=== PATIENT | male | born 1980 | race Caucasian/White ===

== ENCOUNTER 2017-03-19 13:10 | Emergency (ER) | payer BC ==
[~2017-03-19] VITALS: Ht 167.6 cm; Wt 113.0 kg
[~2017-03-19 13:10] MED LIST: ATV/1 PO; ONDA8TAB12 PO; PRED20TA PO
[2017-03-19 13:11] VITALS: TEMP 37.1; Ht 167.6 cm; Wt 113.0 kg
[2017-03-19] MEDS ORDERED: BETAPOW PO (13:27)
[2017-03-19 13:34] VITALS: O2SAT 96
[2017-03-19] MEDS ORDERED: ONDANSETRON INJ 2 MG/ML 2 ML VIAL IV STA (14:05)
[2017-03-19] MEDS ORDERED: MECLIZINE HCL 25 MG TAB PO STA (14:05)
[2017-03-19] MEDS ORDERED: SODIUM CHLORIDE 0.9% 1000ML 1,000 ML IV STA (14:05)
[2017-03-19 14:58] LABS: URINE APPEARANCE CLEAR (CLEAR); URINE BILIRUBIN NEG (NEG); URINE COLOR YELLOW; URINE EPITHELIAL CELL AUTO 0-5 /lpf (0-5); URINE NITRITE NEG (NEG); URINE SPECIFIC GRAVITY 1.022 (1.000-1.030); UROBILINOGEN NEG (NEG)
[2017-03-19 15:00] LABS: MANUAL MICROSCOPIC REQUIRED? NO; REVIEW REQ? NO
[2017-03-19 15:14] LABS: BASO % 0.4 %; BASO ABS # 0.03 K/uL (0-0.2); COMPLETE YES; EOS % 1.9 %; HEMATOCRIT 44.1 % (42-52); IG% 0.3 %; LYMPH % 25.3 %; LYMPH ABS # 1.76 K/uL (1.2-3.4); MEAN CELL VOLUME 85.1 fL (80-100); MEAN CORPUSCULAR HEMOGLOBIN 29.2 pg (25-34); MEAN CORPUSCULAR HGB CONC 34.2 g/dl (32-36); MEAN PLATELET VOLUME 10.7 fL (7.4-10.4); MONO % 6.7 %; NEUT % 65.4 %; PLATELET COUNT 204 K/uL (130-400); RED BLOOD COUNT 5.18 M/uL (4.7-6.1); WHITE BLOOD COUNT 6.97 K/uL (4.8-10.8)
[2017-03-19 15:15] LABS: BENZODIAZEPINE, URINE NEG (NEG); COCAINE,URINE NEG (NEG); PHENCYCLIDINE, URINE NEG (NEG)
[2017-03-19 15:38] LABS: ALT/SGPT 29 U/L (12-78); AST/SGOT 7 U/L (15-37); BLOOD UREA NITROGEN 16 mg/dl (7-18); BUN/CREATININE RATIO 18.7 (10-20); CARBON DIOXIDE 28 mmol/L (21-32); CHLORIDE 109 mmol/L (98-107); CREATININE 0.87 mg/dl (0.60-1.40); GLUCOSE 99 mg/dl (70-99); SODIUM 143 mmol/L (136-145)
[2017-03-19 15:49] LABS: ALB/GLOB RATIO 1.2 (0.9-2); ALKALINE PHOSPHATASE 51 U/L (45-117); THYROID STIMULATING HORMONE 0.517 uIu/ml (0.300-4.500)
[2017-03-19 15:53] LABS: ACETAMINOPHEN < 2 ug/ml (10-30)
--- NOTE | 2017-03-19 17:13 | EMERGENCY ROOM VISIT NOTE ---
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 Patient reports that he has been under increased stress over the last week due to the of a friend from overdose. The friend's sister also apparently tried to harm herself. He has been trying to be supportive for her, and has had difficulty dealing with the sudden of his friend. He also reports that he is having difficulty coping with his chronic medical condition. He has good and bad days with regards to his dizziness and vertigo. He is followed by neurologist from [place], and reports that he has been appointment in April. He has symptoms on a daily basis, some days are better than others. Today, he feels like they are worsened by his stress and anxiety. He presently describes his symptoms as feeling like he is "on a Tilt a Whirl" with associated nausea. He has not taken any medication for his symptoms today. He reports "I feel like I' m going insane." He was apparently at work, where he states he had a "breakdown." His coworker wanted to take him home, but the patient did not feel like he could go home, and tried to go to his [employer] to speak to his auto parts handler. When the auto parts handler was not available, the coworker suggested coming to the emergency department. The patient states "I just want someone to talk to." The patient has a remote history of depression when he was roughly 16 after the sudden passing of his father. He did see a therapist and was on antidepressants for some time. He does endorse symptoms consistent with anxiety , but is not presently on any medications for this. He has a lot of issues coping with his chronic medical condition. He denies feeling suicidal or homicidal at this time. Review of Systems Review of systems as per HPI. All other systems reviewed were negative. 10 systems reviewed. Past Medical/Surgical History Medical Problems: (1) Anxiety (2) Depressive Disorder Nec (3) Fall (4) Meniere disease (5) Neurofibromatosis,Type 1 Von Recklinghausen's (6) Tinnitus Nos (7) Tinnitus Nos (8) Tinnitus Nos (9) Unspecified tinnitus (10) Vertigo (11) Vertigo (12) Vertigo Electronic medical records are reviewed and summarized as above/below. See Problem List. Social History Smoking Status: Current Every Day Smoker Alcohol Use: none Drug Use: none Marital Status: single Housing Status: lives with family Occupation Status: employed Current/Historical Medications Scheduled Betahistine Hydrochloride (Bul (Betahistine Dihydrochlori), Unknown Dose PO DIRECTED Allergies Coded Allergies: Dimenhydrinate (Verified Allergy, Severe, VESTIBULAR SX, 03/31/16) INSTRUCTED NEVER TO TAKE Nabumetone (Verified Allergy, Unknown, RASH, 03/31/16) Physical Exam Vital Signs Date Time Temp Pulse Resp B/P (MAP) Pulse Ox O2 Delivery O2 Flow Rate FiO2 03/19/17 17:15 72 16 145/72 98 Room Air 03/19/17 15:17 76 153/89 98 Room Air 81 142/88 85 155/94 03/19/17 15:17 76 16 153/89 98 Room Air 03/19/17 13:38 92 03/19/17 13:34 96 Room Air 03/19/17 13:11 37.1 93 16 153/85 96 Room Air Physical Exam CONSTITUTIONAL: Patient is a well-appearing 36-year-old white male who is awake and alert and in no acute distress. His vital signs are stable. HEENT: Normocephalic, atraumatic. Pupils equal, round, reactive to light and accommodation. EOMs intact without nystagmus. Sclera are anicteric. Tympanic membranes intact, with normal landmarks. External canals are clear. No hemotympanum or Delatorre sign. Oral and nasopharynx are clear. No CSF rhinorrhea. Mucous membranes are moist. NECK: Supple, nontender, no lymphadenopathy. Full range of motion. HEART: Regular rate and rhythm, with normal S1 and S2, no murmur or gallop or rub is heard. LUNGS: Breath sounds equal and clear to auscultation without wheezes, rales, or rhonchi heard. ABDOMEN: Bowel sounds are present. Abdomen is soft, nontender and nondistended. SKIN: No lesions or rash, normal skin turgor. EXTREMITIES: No cyanosis, edema, joint tenderness or swelling. No deformity. NEUROLOGICAL: Alert and oriented x4. Cranial nerves 2 through 12, sensation and strength grossly intact. Gait is normal. Finger to nose is intact. Immediate, recent and remote memories are intact. Concentration is normal. PSYCHIATRIC: Patient is alert and oriented. Flat affect, voice is muted and mumbles at times. Eye contact is appropriate. Answers questions appropriately. No homicidal or suicidal thoughts or ideation. Medical Decision & Procedures Laboratory Results 03/19/17 15:00 Red Blood Count 5.18, Mean Corpuscular Volume 85.1, Mean Corpuscular Hemoglobin 29.2, Mean Corpuscular Hemoglobin Concent 34.2, Mean Platelet Volume 10.7, Neutrophils (%) (Auto) 65.4, Lymphocytes (%) (Auto) 25.3, Monocytes (%) (Auto) 6.7, Eosinophils (%) (Auto) 1.9, Basophils (%) (Auto) 0.4, Neutrophils # (Auto) 4.56, Lymphocytes # (Auto) 1.76, Monocytes # (Auto) 0.47, Eosinophils # (Auto) 0.13, Basophils # (Auto) 0.03 03/19/17 15:00 Test 03/19/17 14:30 03/19/17 15:00 03/19/17 15:20 Urine Color YELLOW Urine Appearance CLEAR (CLEAR) Urine pH 7.0 (4.5-7.5) Urine Specific Sumpter 1.022 (1.000-1.030) Urine Protein 1+ (NEG) Urine Glucose (UA) NEG (NEG) Urine Ketones TRACE (NEG) Urine Occult Blood TRACE (NEG) Urine Nitrite NEG (NEG) Urine Bilirubin NEG (NEG) Urine Urobilinogen NEG (NEG) Urine Leukocyte Esterase NEG (NEG) Urine WBC (Auto) 0 /hpf (0-5) Urine RBC (Auto) 5-10 /hpf (0-4) Urine Hyaline Casts (Auto) 1-5 /lpf (0-5) Urine Epithelial Cells (Auto) 0-5 /lpf (0-5) Urine Bacteria (Auto) NEG (NEG) Urine Opiates Screen NEG (NEG) Urine Methadone, Qualitative NEG (NEG) Urine Barbiturates NEG (NEG) Urine Phencyclidine (PCP) Level NEG (NEG) Ur Amphetamine/Methamphetamine NEG (NEG) MDMA (Ecstasy) Screen NEG (NEG) Urine Benzodiazepines Screen NEG (NEG) Urine Cocaine Metabolite NEG (NEG) Urine Marijuana (THC) POS (NEG) White Blood Count 6.97 K/uL (4.8-10.8) Red Blood Count 5.18 M/uL (4.7-6.1) Hemoglobin 15.1 g/dL (14.0-18.0) Hematocrit 44.1 % (42-52) Mean Corpuscular Volume 85.1 fL (80-100) Mean Corpuscular Hemoglobin 29.2 pg (25-34) Mean Corpuscular Hemoglobin Concent 34.2 g/dl (32-36) Platelet Count 204 K/uL (130-400) Mean Platelet Volume 10.7 fL (7.4-10.4) Neutrophils (%) (Auto) 65.4 % Lymphocytes (%) (Auto) 25.3 % Monocytes (%) (Auto) 6.7 % Eosinophils (%) (Auto) 1.9 % Basophils (%) (Auto) 0.4 % Neutrophils # (Auto) 4.56 K/uL (1.4-6.5) Lymphocytes # (Auto) 1.76 K/uL (1.2-3.4) Monocytes # (Auto) 0.47 K/uL (0.11-0.59) Eosinophils # (Auto) 0.13 K/uL (0-0.5) Basophils # (Auto) 0.03 K/uL (0-0.2) RDW Standard Deviation 39.5 fL (36.4-46.3) RDW Coefficient of Variation 12.7 % (11.5-14.5) Immature Granulocyte % (Auto) 0.3 % Immature Granulocyte # (Auto) 0.02 K/uL (0.00-0.02) Anion Gap 6.0 mmol/L (3-11) Est Creatinine Clear Calc Drug Dose 141.2 ml/min Estimated GFR () 130.5 Estimated GFR (Non- 112.6 BUN/Creatinine Ratio 18.7 (10-20) Calcium Level 9.0 mg/dl (8.5-10.1) Total Bilirubin 0.3 mg/dl (0.2-1) Aspartate Amino Transf (AST/SGOT) 7 U/L (15-37) Alanine Aminotransferase (ALT/SGPT) 29 U/L (12-78) Alkaline Phosphatase 51 U/L (45-117) Troponin I < 0.015 ng/ml (0-0.045) Total Protein 7.1 gm/dl (6.4-8.2) Albumin 3.8 gm/dl (3.4-5.0) Globulin 3.3 gm/dl (2.5-4.0) Albumin/Globulin Ratio 1.2 (0.9-2) Thyroid Stimulating Hormone (TSH) 0.517 uIu/ml (0.300-4.500) Salicylates Level 3.8 mg/dl (2.8-20) Acetaminophen Level < 2 ug/ml (10-30) Ethyl Alcohol mg/dL < 3.0 mg/dl (0-3) Medications Administered Medications (Trade) Dose Ordered Sig/Sudha Route Start Time Stop Time Status Last Admin Dose Admin Sodium Chloride 1,000 ml @ 999 mls/hr Q1H1M STAT IV 03/19/17 14:05 03/19/17 15:05 DC 03/19/17 14:05 999 MLS/HR Ondansetron HCl (Zofran Inj) 4 mg NOW STAT IV 03/19/17 14:05 03/19/17 14:07 DC 03/19/17 14:05 4 MG Meclizine HCl (Antivert Tab) 25 mg NOW STAT PO 03/19/17 14:05 03/19/17 14:07 DC 03/19/17 14:42 25 MG ECG Indication: other (dizziness) Rate (beats per minute): 85 Rhythm: normal sinus Findings: no acute ischemic change, no ectopy Change: no significant change ED Course The patient was seen and assessed as above. His old records are reviewed. He presents the emergency department for evaluation of dizziness, but upon further questioning, the patient has been under increased stress and anxiety due to both his chronic medical condition, as well as unexpected passing of a friend, and in talking this over with the patient, he would like to speak with someone from mental health. The dizziness was a secondary concern for him, as he states that this is typical of his chronic condition, and is no worse than his baseline. He feels that the dizziness has been exacerbated by his stress and anxiety however. EKG was performed and was as noted above. IV lock was initiated and the patient was placed on a serials librarian. He was hydrated with normal saline solution, and was medicated with Zofran 4 mg IV and meclizine 25 mg orally. He reported feeling symptomatically dizzy while laying in the bed, no worse than his normal, and his neurologic exam is completely benign. Laboratory studies were collected primarily for psychiatric clearance, but also to assess or his dizziness. The patient's emergency department workup was largely unrevealing. White count is not elevated. He is not anemic. There are no electrolyte or renal function abnormalities noted. Liver functions are normal. Cardiac enzymes and thyroid function studies are within normal limits. Urinalysis noted trace ketones and trace blood. Urine toxicology screen was positive for marijuana, which the patient did not admit to. Alcohol, salicylates and acetaminophen levels were undetectable. Patient was discussed and evaluated by Miguel Angel Hyaden, ED Psychiatric Sandblast Or Shot[employer] Equipment Tender. Please refer to his assessment for further information. Patient was reviewed with Miguel Angel after his assessment, and it was not felt that he was a threat to himself or others, and did not feel that inpatient psychiatric care was warranted, however referral to outpatient services was provided and the patient was in agreement. The patient was encouraged to seek further psychiatric care as an outpatient, and was educated on the worrisome signs or symptoms for which he should return to the emergency department. With regards to his dizziness, he was advised to keep the appointment he has scheduled with his neurologist for April. Certainly he can reach out to their office sooner if he is having changes in his current condition. He expressed understanding of this and was agreeable. He was discharged home with his mother driving. Differential diagnoses entertained included BPV, dehydration, anemia, mass or malignancy, infection, electrolyte or metabolic abnormality, cardiac arrhythmia , toxicologic, cardiac or neurologic etiology, depression, anxiety, substance abuse, among others. Blood pressure screening: Patient was found to have a slightly elevated blood pressure due to circumstances. I do not believe that the patient requires hypertension monitoring. Medication reconciliation: I attest that I have personally reviewed the patient' s current medication list. Medical Decision See Emergency Department course Impression Primary Impression: Anxiety Additional Impression: Dizziness Departure Information Referrals Atul Guardado III, M.D. (PCP) Patient Instructions My [facility] Additional Instructions DO NOT drive, drink alcohol, operate machinery, or perform dangerous activities today. You were given medications in the ER that can affect your ability to safely function or operate a vehicle. Continue your current medications. Return to the ER for severe anxiety or depression, thoughts of hurting yourself or others, inability to function, hallucinations, worsening of your condition, or as needed. Follow up with outpatient services as discussed. Follow up with your primary care physician this week for a recheck of your current condition and continued care. Follow-up with your specialist in [place] as you have scheduled. Problem Qualifiers
[2017-03-19 17:15] VITALS: BP 145/72; PULSE 72; O2SAT 98
[2017-03-20] MEDS ORDERED: ATV/1 PO (18:35)
== END 2017-03-19 18:03 | disposition home or self-care (01) ==
LOC: C.EDB 13:11
DX: F41.9 Anxiety disorder, unspecified (principal); R42 Dizziness and giddiness; F32.9 Major depressive disorder, single episode, unspecified; H81.09 Meniere's disease, unspecified ear; F17.200 Nicotine dependence, unspecified, uncomplicated

== ENCOUNTER 2017-03-20 14:12 | Emergency (ER) | payer BC ==
[~2017-03-20] VITALS: Ht 167.6 cm; Wt 120.0 kg
[~2017-03-20 14:12] MED LIST changes: -ATV/1 PO; +BETAPOW PO; -ONDA8TAB12 PO; -PRED20TA PO
[2017-03-20 14:17] VITALS: TEMP 36.8; Ht 167.6 cm; Wt 120.0 kg
[2017-03-20] MEDS ORDERED: SODIUM CHLORIDE 0.9% 1000ML 1,000 ML IV STA (14:58)
[2017-03-20 15:03] VITALS: O2SAT 97
[2017-03-20] MEDS ORDERED: DIAZEPAM INJ 5 MG/ML 2 ML CARP IV STA (15:10)
[2017-03-20] MEDS ORDERED: ONDANSETRON 8 MG/54 ML D5W IV STA (15:10)
[2017-03-20 15:49] LABS: BASO % 0.2 %; BASO ABS # 0.02 K/uL (0-0.2); COMPLETE YES; EOS % 1.3 %; HEMATOCRIT 44.9 % (42-52); IG% 0.4 %; LYMPH % 26.2 %; LYMPH ABS # 2.17 K/uL (1.2-3.4); MEAN CELL VOLUME 84.7 fL (80-100); MEAN CORPUSCULAR HEMOGLOBIN 28.9 pg (25-34); MEAN CORPUSCULAR HGB CONC 34.1 g/dl (32-36); MEAN PLATELET VOLUME 10.5 fL (7.4-10.4); NEUT % 63.9 %; PLATELET COUNT 225 K/uL (130-400); WHITE BLOOD COUNT 8.29 K/uL (4.8-10.8)
[2017-03-20 16:05] LABS: PARTIAL THROMBOPLASTIN RATIO 1.1; PROTHROMBIN TIME (PATIENT) 10.6 SECONDS (9.0-12.0)
[2017-03-20 16:07] LABS: ALT/SGPT 29 U/L (12-78); AST/SGOT 10 U/L (15-37); BLOOD UREA NITROGEN 14 mg/dl (7-18); BUN/CREATININE RATIO 17.5 (10-20); CALCIUM 9.2 mg/dl (8.5-10.1); CARBON DIOXIDE 27 mmol/L (21-32); CHLORIDE 109 mmol/L (98-107); CREATININE 0.82 mg/dl (0.60-1.40); GLUCOSE 90 mg/dl (70-99); MAGNESIUM 2.4 mg/dl (1.8-2.4); POTASSIUM 4.1 mmol/L (3.5-5.1); SODIUM 141 mmol/L (136-145)
[2017-03-20 16:16] LABS: ALKALINE PHOSPHATASE 51 U/L (45-117); CKMB/CK RATIO 1.3 (0-3.0); THYROID STIMULATING HORMONE 0.473 uIu/ml (0.300-4.500)
[2017-03-20 17:32] LABS: URINE APPEARANCE CLEAR (CLEAR); URINE BILIRUBIN NEG (NEG); URINE COLOR YELLOW; URINE EPITHELIAL CELL AUTO 0-5 /lpf (0-5); URINE NITRITE NEG (NEG); URINE PH 7.5 (4.5-7.5); URINE SPECIFIC GRAVITY 1.011 (1.000-1.030); UROBILINOGEN NEG (NEG)
[2017-03-20 17:35] LABS: MANUAL MICROSCOPIC REQUIRED? NO; REVIEW REQ? NO
[2017-03-20] MEDS ORDERED: ATV/1 PO (18:35)
[2017-03-20 18:37] VITALS: BP 127/79; PULSE 72; O2SAT 98
[2017-03-20] MEDS ORDERED: ATIVAN 1MG HOMEPACK PO ONE (18:45)
--- NOTE | 2017-03-20 21:03 | EMERGENCY ROOM VISIT NOTE ---
History Report prepared by Valeri: Teddy Díaz Under the Supervision of: Dr. Atul Cortes M.D. First contact with patient: 14:50 Chief Complaint: DIZZY Stated Complaint: SEEN AT [facility] T-1, DIZZY, ROOM SPINNING Nursing Triage Summary: triage note: pt to triage via wheelchair. "i am just really dizzy and i have been falling." History of Present Illness The patient is a 36 year old male who presents to the Emergency Room with complaints of dizziness that occurred today, a couple of hours ago. He was seen in the ER yesterday for the same symptoms. However today, his symptoms have worsened again. Today, his dizziness has actually made him fall as well. He did not injure anything, however. He is experiencing nausea currently. He suffers from chronic vertigo and balance problems. He has received surgeries to try to resolve these, but they only offered some relief. Moving his eyes side to side make his symptoms worse. He currently has Meclizine and an antihistamine at home , but states they did not help. Pt denies LOC, headache, fevers, chills, diaphoresis, visual changes, neck pain, chest pain, breathing difficulties, vomiting, abdominal pain, back pain, melena, hematochezia, urinary symptoms, numbness, weakness, lymphadenopathy, rash, or other complaints. He also notes that he has been recently stressed out because his friend . Source of History: patient Onset: today Position: other (global) Symptom Intensity: moderate Quality: other (Dizziness) Timing: constant Modifying Factors (Worsening): movement (Eyes) Associated Symptoms: + nausea Review of Systems See HPI for pertinent positives and negatives. A total of ten systems were reviewed and were otherwise negative. Past Medical & Surgical Medical Problems: (1) Anxiety (2) Depressive Disorder Nec (3) Fall (4) Meniere disease (5) Neurofibromatosis,Type 1 Von Recklinghausen's (6) Tinnitus Nos (7) Tinnitus Nos (8) Tinnitus Nos (9) Unspecified tinnitus (10) Vertigo (11) Vertigo (12) Vertigo Family History Patient reports no known family medical history. Social History Smoking Status: Current Every Day Smoker Alcohol Use: none Drug Use: none Marital Status: single Housing Status: lives with family Occupation Status: employed Current/Historical Medications Scheduled Betahistine Hydrochloride (Bul (Betahistine Dihydrochlori), Unknown Dose PO DIRECTED Scheduled PRN Lorazepam (Ativan), 1 MG PO Q6H PRN for Dizziness or Vertigo Allergies Coded Allergies: Dimenhydrinate (Verified Allergy, Severe, VESTIBULAR SX, 03/20/17) INSTRUCTED NEVER TO TAKE Nabumetone (Verified Allergy, Unknown, RASH, 03/20/17) Physical Exam Vital Signs Date Time Temp Pulse Resp B/P (MAP) Pulse Ox O2 Delivery O2 Flow Rate FiO2 03/20/17 18:37 72 18 127/79 98 Room Air 03/20/17 17:14 78 18 159/90 98 Room Air 03/20/17 15:56 71 18 129/88 99 Room Air 03/20/17 15:06 78 03/20/17 15:03 97 Room Air 03/20/17 14:58 83 150/79 93 135/74 81 124/76 03/20/17 14:17 36.8 85 18 138/81 96 Room Air Physical Exam GENERAL: Awake, alert, well appearing, no distress HENT: Normocephalic, atraumatic. TM's normal. Oropharynx unremarkable. EYES: PERRL. EOMI. Lateral nystagmus, no pathological nystagmus. Normal conjunctiva. Sclera non-icteric. NECK: Supple. No nuchal rigidity. FROM. No JVD or bruit. RESPIRATORY: CTA CARDIAC: RRR. No murmur. ABDOMEN: Soft, non distended. No tenderness to palpation. No rebound or guarding. No masses. RECTAL: Deferred. MUSCULOSKELETAL: Unremarkable. No edema. No discoloration. Gross motor strength symmetric. NEURO: Cranial nerves 2-12 grossly intact. Normal sensorium. No sensory or motor deficits noted. Unsteady gait normal. Speech normal. No pronator drift. SKIN: No rash or jaundice noted. LYMPH: No adenopathy. Medical Decision & Procedures Laboratory Results 03/20/17 15:30 Red Blood Count 5.30, Mean Corpuscular Volume 84.7, Mean Corpuscular Hemoglobin 28.9, Mean Corpuscular Hemoglobin Concent 34.1, Mean Platelet Volume 10.5, Neutrophils (%) (Auto) 63.9, Lymphocytes (%) (Auto) 26.2, Monocytes (%) (Auto) 8.0, Eosinophils (%) (Auto) 1.3, Basophils (%) (Auto) 0.2, Neutrophils # (Auto) 5.30, Lymphocytes # (Auto) 2.17, Monocytes # (Auto) 0.66, Eosinophils # (Auto) 0.11, Basophils # (Auto) 0.02 03/20/17 15:30 Test 03/20/17 15:30 03/20/17 17:10 White Blood Count 8.29 K/uL (4.8-10.8) Red Blood Count 5.30 M/uL (4.7-6.1) Hemoglobin 15.3 g/dL (14.0-18.0) Hematocrit 44.9 % (42-52) Mean Corpuscular Volume 84.7 fL (80-100) Mean Corpuscular Hemoglobin 28.9 pg (25-34) Mean Corpuscular Hemoglobin Concent 34.1 g/dl (32-36) Platelet Count 225 K/uL (130-400) Mean Platelet Volume 10.5 fL (7.4-10.4) Neutrophils (%) (Auto) 63.9 % Lymphocytes (%) (Auto) 26.2 % Monocytes (%) (Auto) 8.0 % Eosinophils (%) (Auto) 1.3 % Basophils (%) (Auto) 0.2 % Neutrophils # (Auto) 5.30 K/uL (1.4-6.5) Lymphocytes # (Auto) 2.17 K/uL (1.2-3.4) Monocytes # (Auto) 0.66 K/uL (0.11-0.59) Eosinophils # (Auto) 0.11 K/uL (0-0.5) Basophils # (Auto) 0.02 K/uL (0-0.2) RDW Standard Deviation 38.6 fL (36.4-46.3) RDW Coefficient of Variation 12.6 % (11.5-14.5) Immature Granulocyte % (Auto) 0.4 % Immature Granulocyte # (Auto) 0.03 K/uL (0.00-0.02) Prothrombin Time 10.6 SECONDS (9.0-12.0) Prothromb Time International Ratio 1.0 (0.9-1.1) Activated Partial Thromboplast Time 27.7 SECONDS (21.0-31.0) Partial Thromboplastin Ratio 1.1 Anion Gap 5.0 mmol/L (3-11) Est Creatinine Clear Calc Drug Dose 154.9 ml/min Estimated GFR () 133.7 Estimated GFR (Non- 115.4 BUN/Creatinine Ratio 17.5 (10-20) Calcium Level 9.2 mg/dl (8.5-10.1) Magnesium Level 2.4 mg/dl (1.8-2.4) Total Bilirubin 0.4 mg/dl (0.2-1) Direct Bilirubin 0.1 mg/dl (0-0.2) Aspartate Amino Transf (AST/SGOT) 10 U/L (15-37) Alanine Aminotransferase (ALT/SGPT) 29 U/L (12-78) Alkaline Phosphatase 51 U/L (45-117) Total Creatine Kinase 48 U/L (39-308) Creatine Kinase MB 0.6 ng/ml (0.5-3.6) Creatine Kinase MB Ratio 1.3 (0-3.0) Troponin I < 0.015 ng/ml (0-0.045) Total Protein 7.1 gm/dl (6.4-8.2) Albumin 3.7 gm/dl (3.4-5.0) Lipase 70 U/L (73-393) Thyroid Stimulating Hormone (TSH) 0.473 uIu/ml (0.300-4.500) Urine Color YELLOW Urine Appearance CLEAR (CLEAR) Urine pH 7.5 (4.5-7.5) Urine Specific [place] 1.011 (1.000-1.030) Urine Protein NEG (NEG) Urine Glucose (UA) NEG (NEG) Urine Ketones NEG (NEG) Urine Occult Blood TRACE (NEG) Urine Nitrite NEG (NEG) Urine Bilirubin NEG (NEG) Urine Urobilinogen NEG (NEG) Urine Leukocyte Esterase NEG (NEG) Urine WBC (Auto) 0 /hpf (0-5) Urine RBC (Auto) 0-4 /hpf (0-4) Urine Hyaline Casts (Auto) 0 /lpf (0-5) Urine Epithelial Cells (Auto) 0-5 /lpf (0-5) Urine Bacteria (Auto) NEG (NEG) Laboratory results reviewed by me Medications Administered Medications (Trade) Dose Ordered Sig/Sudha Route Start Time Stop Time Status Last Admin Dose Admin Sodium Chloride 1,000 ml @ 999 mls/hr Q1H1M STAT IV 03/20/17 14:58 03/20/17 15:58 DC 03/20/17 15:58 999 MLS/HR Ondansetron HCl (Zofran 8mg Iv) 8 mg NOW STAT IV 03/20/17 15:10 03/20/17 15:11 DC 03/20/17 15:57 8 MG Diazepam (Valium Inj) 5 mg NOW STAT IV 03/20/17 15:10 03/20/17 15:11 DC 03/20/17 15:57 5 MG Lorazepam (Ativan 1MG Home Pack) 1 homepack UD ONCE PO 03/20/17 18:45 03/20/17 18:46 DC 03/20/17 18:37 1 HOMEPACK ECG Indication: other (Dizziness) Rate (beats per minute): 77 Rhythm: normal sinus Findings: no acute ischemic change, no ectopy ED Course 1450: The patient was evaluated in room C10. A complete history and physical exam was performed. 1458: Ordered Sodium Chloride 1000 ml @ 999 mls/hr IV 1500: The patient requested to talk to psychiatrics. 1510: Ordered Valium Inj 5 mg IV, Ondansetron HCl 8 mg IV 1810: The psychiatric bottle caser is speaking with him now. 1820: Per bottle caser, he denies any suicidal or homicidal ideation. He is just very anxious. We will be giving him Ativan and instructions to follow up with his PCP. The hospitalist with message his PCP to get him an appointment this week. 1845: Ordered Lorazepam 1 homepack PO 1900: I reevaluated the patient. Discussed results and discharge instructions: He verbalized understanding and agreement. The patient is ready for discharge. Medical Decision Triage Nursing notes reviewed. The patient's presentation and history were concerning for dizziness and frustration with his chronic medical conditions. Etiologies such as chronic vertigo, Mnire's disease, mood disorder, benign positional vertigo, tumor, infection, hypoglycemia, electrolyte abnormalities, cardiac sources, intracerebral event, toxicologic, neurologic, as well as others were entertained. Patient was treated with Valium and Zofran. The patient was hydrated. Mental Health bottle caser notified. The patient was feeling better on reassessment. He was not suicidal or homicidal. He did not want to stay in the hospital regarding his emotional stress. He did ask for further direction regarding his ongoing problem. He has an appointment in April with his surgeon. I told him to keep this but also it would not be unreasonable to have a second opinion since he is very unsure what to do. Because of this the patient will need to follow-up closely with his family physician. I did ask for the [facility], Kanwal Perkins PA-C to staff message his primary physician Dr. Atul Guardado so that he is aware and can see the patient expeditiously. The patient will be given a small amount of Ativan which should help with his vertigo as well as his anxiety. If he worsens in any way she will come back to the emergency department. Patient felt comfortable with this plan.I gave my usual and customary discussion regarding this issue. By the evaluation outlined above other emergent etiologies such as those listed in the differential, as well as others, were deemed relatively unlikely. The patient was educated about the findings as listed above. All questions were answered and the patient was pleased with the treatment. Return instructions were outlined and the patient was discharged in stable condition. The patient was referred to his PCP for follow-up for a recheck of the current condition. Medication Reconciliation: I attest that I have personally reviewed the patient' s current medication list Blood pressure screening: Patient was found to have normal blood pressure on screening and does not require follow-up. Impression Primary Impression: Vertigo Additional Impressions: Dizziness Anxiety Scribe Attestation The scribe's documentation has been prepared under my direction and personally reviewed by me in its entirety. I confirm that the note above accurately reflects all work, treatment, procedures, and medical decision making performed by me. Departure Information Dispostion Home / Self-Care Prescriptions Lorazepam (ATIVAN) 1 Mg Tab 1 MG PO Q6H Y for Dizziness or Vertigo, #10 TAB Prov: Atul Cortes MD 03/20/17 Referrals Atul Guardado III, M.D. (PCP) Forms HOME CARE DOCUMENTATION FORM, IMPORTANT VISIT INFORMATION Patient Instructions My [facility] Additional Instructions DIZZINESS INSTRUCTIONS: DO NOT drive, drink alcohol, operate machinery, or perform dangerous activities today. You were given medications in the ER that can affect your ability to safely function or operate a vehicle. You should not drive or perform any dangerous activities until your symptoms resolve. Ativan 1mg: Take 1 pill every 6 hours as needed for dizziness or vertigo. Avoid alcohol, operating machinery or dangerous equipment, working on ladders or roofs, DRIVING, or situations where being under the influence may be dangerous Rest and drink plenty of fluids as tolerated. Continue current medications. Return to the ER immediately for worsening or persistent dizziness, vomiting, severe anxiety, thoughts of self-harm, headache, fevers, chest pains, difficulty breathing, black or bloody stools, slurred speech, numbness, weakness , visual changes, worsening of your condition, or as needed. Follow up with your primary physician tomorrow for a recheck of your current condition. Problem Qualifiers
== END 2017-03-20 18:48 | disposition home or self-care (01) ==
LOC: C.EDB 14:14 → C.EDC 18:48
DX: R42 Dizziness and giddiness (principal); F41.9 Anxiety disorder, unspecified; F32.9 Major depressive disorder, single episode, unspecified; Q85.01 Neurofibromatosis, type 1; F17.210 Nicotine dependence, cigarettes, uncomplicated

== ENCOUNTER 2017-11-18 05:01 | Emergency (ER) | payer SELFPAY ==
[~2017-11-18] VITALS: Ht 170.2 cm; Wt 102.9 kg
[2017-11-18 05:09] VITALS: Ht 170.2 cm; Wt 102.9 kg
[2017-11-18 05:50] LABS: HEMATOCRIT 47.7 % (42-52); MEAN CELL VOLUME 84.9 fL (80-100); MEAN CORPUSCULAR HEMOGLOBIN 30.2 pg (25-34); MEAN CORPUSCULAR HGB CONC 35.6 g/dl (32-36); MEAN PLATELET VOLUME 11.6 fL (7.4-10.4); PLATELET COUNT 226 K/uL (130-400); RED CELL DISTRIBUTION WIDTH CV 12.4 % (11.5-14.5); WHITE BLOOD COUNT 8.67 K/uL (4.8-10.8)
[2017-11-18 05:58] LABS: ALBUMIN 4.2 gm/dl (3.4-5.0); ALT/SGPT 82 U/L (12-78); AST/SGOT 25 U/L (15-37); BLOOD UREA NITROGEN 10 mg/dl (7-18); CALCIUM 9.4 mg/dl (8.5-10.1); CARBON DIOXIDE 24 mmol/L (21-32); CREATININE 0.86 mg/dl (0.60-1.40); GLUCOSE 102 mg/dl (70-99); POTASSIUM 3.8 mmol/L (3.5-5.1); SODIUM 137 mmol/L (136-145)
[2017-11-18 06:09] LABS: ALKALINE PHOSPHATASE 52 U/L (45-117)
--- NOTE | 2017-11-18 06:46 | EMERGENCY ROOM VISIT NOTE ---
ED Visit Note This patient was signed out to me by Dr. Littlejohn at shift change. At that point, the patient had been medically cleared and was awaiting psychiatric evaluation. Apparently he has had insomnia and a host hallucinating with this. He denies any suicidal or homicidal ideations. He was evaluated by the mental health team they feel that he would benefit from inpatient treatment and evaluation. When I go to check on the patient he is awake and cooperative. He is willing to come in voluntarily. He has been accepted by the medicine transfer for voluntary admission.
--- NOTE | 2017-11-18 06:53 | EMERGENCY ROOM VISIT NOTE ---
History Report prepared by Valeri: Ciera Melvin Under the Supervision of: Dr. Clementine Littlejohn D.O. First contact with patient: 05:12 Chief Complaint: MENTAL HEALTH EVALUATION Stated Complaint: mental health assessment History of Present Illness The patient is a 37 year old male who presents to the Emergency Room for a mental health evaluation. The patient states that he has not slept for 4 days. He states that he does not know why, but that he wants to. He reports that he has had these sleeping issues for 6 months. He states that he is hallucinating because he hasn't slept. He notes he currently is and he is seeing objects on the van. He notes that before coming in he saw people in the streets disappearing. He states that he has tried taking Melatonin and doing breathing activities to get to sleep. He states that he can fall asleep for about 20 minutes, but then wakes back up. He states that he cannot stand living like this anymore and the days he stays awake are getting longer and longer. He reports that he called [facility] because of this. He states that he feels that his lack of sleep and Mnire's Disease has exacerbated his depression. The patient reports that he has seen a therapist and has been treated for depression , anxiety, and bipolar disorder. He states that he hasn't seen a therapist for years. The patient complains of not being able to focus. The patient states that he quit drinking alcohol 2 weeks ago and had a small withdrawal when he did so. The patient notes the he is unemployed and lives with his mother. He notes his mother does not know he is here and would be mad if she knew. He states that he has been eating and drinking normally. The patient denies ever being a psychiatric inpatient before and hearing voices. Source of History: patient Onset: this morning Position: other (global) Quality: other (mental health) Timing: other (episode) Note: The patient complains of insomnia, hallucinating, and not being able to focus. The patient denies hearing voices. Review of Systems See HPI for pertinent positives & negatives. A total of 10 systems reviewed and were otherwise negative. Past Medical & Surgical Medical Problems: (1) Anxiety (2) Depressive Disorder Nec (3) Fall (4) Meniere disease (5) Meniere's disease (6) Neurofibromatosis,Type 1 Von Recklinghausen's (7) Tinnitus Nos (8) Tinnitus Nos (9) Tinnitus Nos (10) Unspecified tinnitus (11) Vertigo (12) Vertigo (13) Vertigo Family History Patient reports no known family medical history. Social History Smoking Status: Current Every Day Smoker Alcohol Use: none Drug Use: none Marital Status: single Housing Status: lives with family Occupation Status: unemployed Current/Historical Medications Scheduled Betahistine Hydrochloride (Bul (Betahistine Dihydrochlori), Unknown Dose PO DIRECTED Allergies Coded Allergies: Dimenhydrinate (Verified Allergy, Severe, VESTIBULAR SX, 03/20/17) INSTRUCTED NEVER TO TAKE Nabumetone (Verified Allergy, Unknown, RASH, 03/20/17) Physical Exam Vital Signs Date Time Temp Pulse Resp B/P (MAP) Pulse Ox O2 Delivery O2 Flow Rate FiO2 11/18/17 07:20 61 16 150/79 100 Room Air 11/18/17 05:09 77 18 175/85 99 Room Air Physical Exam HEENT: Head - normocephalic and atraumatic Pupils are equal, round, and reactive to light. Extraocular eye muscles are intact, and sclera are anicteric. Nose - moist nasal mucosa without discharge. Mouth - moist buccal mucosa. Oropharynx is nonerythematous and there is no tonsillar exudate or edema noted. Neck: Supple; no JVD, nuchal rigidity, cervical lymphadenopathy. Heart: Regular rate and rhythm. There is a normal S1 and S2 with no murmurs, clicks, or gallops appreciated. Lungs: Clear to auscultation bilaterally with no wheezes, rales, or rhonchi. Abdomen: Soft, completely nontender, nondistended, with good bowel sounds. There are no palpable pulsatile masses or hepatosplenomegaly. There is no guarding, rigidity, or rebound noted. Extremities: No evidence of cyanosis, clubbing, or edema. There are easily palpable peripheral pulses. Skin: warm and dry with good turgor and no rashes. Psych: The patient mumbles. Admits to depression and frustration secondary to insomnia. Denies suicidal ideation, but admits to actively hallucinating from sleep deprivation. Medical Decision & Procedures Laboratory Results 11/18/17 05:14 11/18/17 05:14 Test 11/18/17 05:14 11/18/17 05:40 Red Blood Count 5.62 M/uL (4.7-6.1) Mean Corpuscular Volume 84.9 fL (80-100) Mean Corpuscular Hemoglobin 30.2 pg (25-34) Mean Corpuscular Hemoglobin Concent 35.6 g/dl (32-36) RDW Standard Deviation 38.0 fL (36.4-46.3) RDW Coefficient of Variation 12.4 % (11.5-14.5) Mean Platelet Volume 11.6 fL (7.4-10.4) Anion Gap 8.0 mmol/L (3-11) Est Creatinine Clear Calc Drug Dose 137.1 ml/min Estimated GFR () 130.2 Estimated GFR (Non- 112.3 BUN/Creatinine Ratio 11.4 (10-20) Calcium Level 9.4 mg/dl (8.5-10.1) Total Bilirubin 0.6 mg/dl (0.2-1) Direct Bilirubin < 0.1 mg/dl (0-0.2) Aspartate Amino Transf (AST/SGOT) 25 U/L (15-37) Alanine Aminotransferase (ALT/SGPT) 82 U/L (12-78) Alkaline Phosphatase 52 U/L (45-117) Total Protein 8.0 gm/dl (6.4-8.2) Albumin 4.2 gm/dl (3.4-5.0) Thyroid Stimulating Hormone (TSH) 1.010 uIu/ml (0.300-4.500) Salicylates Level 3.3 mg/dl (2.8-20) Acetaminophen Level < 2 ug/ml (10-30) Ethyl Alcohol mg/dL < 3.0 mg/dl (0-3) Urine Color YELLOW Urine Appearance ERROR (CLEAR) Urine pH 5.5 (4.5-7.5) Urine Specific [place] 1.009 (1.000-1.030) Urine Protein NEG (NEG) Urine Glucose (UA) NEG (NEG) Urine Ketones NEG (NEG) Urine Occult Blood 1+ (NEG) Urine Nitrite NEG (NEG) Urine Bilirubin NEG (NEG) Urine Urobilinogen NEG (NEG) Urine Leukocyte Esterase NEG (NEG) Urine WBC (Auto) 0 /hpf (0-5) Urine RBC (Auto) 0-4 /hpf (0-4) Urine Hyaline Casts (Auto) 0 /lpf (0-5) Urine Epithelial Cells (Auto) 0-5 /lpf (0-5) Urine Bacteria (Auto) NEG (NEG) Urine Opiates Screen NEG (NEG) Urine Methadone, Qualitative NEG (NEG) Urine Barbiturates NEG (NEG) Urine Phencyclidine (PCP) Level NEG (NEG) Ur Amphetamine/Methamphetamine NEG (NEG) MDMA (Ecstasy) Screen NEG (NEG) Urine Benzodiazepines Screen NEG (NEG) Urine Cocaine Metabolite NEG (NEG) Urine Marijuana (THC) NEG (NEG) Laboratory results per my review. ED Course 0517: Past medical records reviewed. The patient was evaluated in room A8. A complete history and physical exam was performed. Labs were drawn as above. 0626: The patient is medically cleared. 0730: The patient will be signed out to Dr. Chiang at change of shift. Medical Decision The patient is a 37 year old male who presents to the Emergency Room for a mental health evaluation. Differential diagnoses include mood disorder, thought disorder, insomnia, suicidal ideation. LABS: Normal white count Stable H&H Normal TSH Normal glucose Normal LFTs Normal renal function Negative alcohol Negative Tylenol Salicylate level of 3.3 Urine Tox-screen is negative Urine is positive for 1+ blood This is a 37-year-old male patient who presents to the emergency department with significant insomnia and resulting hallucinations. The patient does have a history of depression, anxiety and possible bipolar disorder. He denies any suicidal ideation or substance abuse. Quit drinking alcohol 2 weeks ago. The patient has not been functioning at home. He feels that he cannot even care for himself at times when he is not able to sleep. He will be evaluated by staff from [facility]. Medication Reconcilliation Current Medication List: was personally reviewed by me Blood Pressure Screening Patient's blood pressure: Elevated blood pressure Blood pressure disposition: Elevated BP felt to be situational Impression Primary Impression: Insomnia Additional Impression: Depression Scribe Attestation The scribe's documentation has been prepared under my direction and personally reviewed by me in its entirety. I confirm that the note above accurately reflects all work, treatment, procedures, and medical decision making performed by me. Departure Information Dispostion Still a Patient Referrals No Doctor, Assigned (PCP) Patient Instructions My [facility] Problem Qualifiers Primary Impression: Insomnia Insomnia type: unspecified Qualified Codes: G47.00 - Insomnia, unspecified Additional Impression: Depression Depression Type: major depressive disorder Major depression recurrence: recurrent Active/Remission status: currently active Major depression episode severity: mild Qualified Codes: F33.0 - Major depressive disorder, recurrent , mild
[2017-11-18] MEDS ORDERED: ONDA4TAB46 PO (13:04)
[2017-11-18] MEDS ORDERED: SERT50TA PO (13:04)
[2017-11-18] MEDS ORDERED: LORA-741 PO (13:04)
[2017-11-18 14:11] VITALS: BP 148/77; PULSE 61; TEMP 36.6; O2SAT 100
== END 2017-11-18 14:12 ==
LOC: EDBD 05:01 → C.EDA 05:03
DX: G47.00 Insomnia, unspecified (principal); F33.0 Major depressive disorder, recurrent, mild; F41.9 Anxiety disorder, unspecified; F31.9 Bipolar disorder, unspecified; H81.09 Meniere's disease, unspecified ear; Q85.01 Neurofibromatosis, type 1; F17.200 Nicotine dependence, unspecified, uncomplicated; Z88.8 Allergy status to other drugs, medicaments and biological substances

== ENCOUNTER 2017-12-02 23:26 | Emergency (ER) | payer OTHER ==
[~2017-12-02] VITALS: Ht 168.9 cm; Wt 111.7 kg
[~2017-12-02 23:26] MED LIST changes: -BETAPOW PO; +LORA-741 PO; +ONDA4TAB46 PO; +SERT50TA PO
[2017-12-02 23:34] VITALS: TEMP 36.8; Ht 168.9 cm; Wt 111.7 kg
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
[2017-12-03 00:27] LABS: BASO % 0.5 %; BASO ABS # 0.04 K/uL (0-0.2); EOS % 6.1 %; EOS ABS # 0.48 K/uL (0-0.5); HEMATOCRIT 42.9 % (42-52); HEMOGLOBIN 15.2 g/dL (14.0-18.0); IG# 0.02 K/uL (0.00-0.02); LYMPH % 31.3 %; LYMPH ABS # 2.46 K/uL (1.2-3.4); MEAN CORPUSCULAR HEMOGLOBIN 29.7 pg (25-34); MEAN CORPUSCULAR HGB CONC 35.4 g/dl (32-36); MEAN PLATELET VOLUME 10.9 fL (7.4-10.4); MONO % 5.9 %; MONO ABS # 0.46 K/uL (0.11-0.59); NEUT % 55.9 %; NEUT ABS # 4.39 K/uL (1.4-6.5); PLATELET COUNT 208 K/uL (130-400); RED CELL DISTRIBUTION WIDTH CV 12.2 % (11.5-14.5); RED CELL DISTRIBUTION WIDTH SD 37.3 fL (36.4-46.3); WHITE BLOOD COUNT 7.85 K/uL (4.8-10.8)
[2017-12-03 00:50] LABS: ALBUMIN 3.7 gm/dl (3.4-5.0); CALCIUM 8.9 mg/dl (8.5-10.1); CREATININE 0.89 mg/dl (0.60-1.40); POTASSIUM 3.8 mmol/L (3.5-5.1)
[2017-12-03 01:01] LABS: TOTAL PROTEIN 7.1 gm/dl (6.4-8.2)
[2017-12-03] MEDS ORDERED: CHLO1TAB19 PO ×2 (01:22)
[2017-12-03] MEDS ORDERED: TRAZ50TA35 PO (01:22)
[2017-12-03] MEDS ORDERED: DIPH25CA5 PO (01:22)
[2017-12-03] MEDS ORDERED: BENZ-89 PO (01:22)
[2017-12-03] MEDS ORDERED: MECL1TAB42 PO (01:23)
[2017-12-03] MEDS ORDERED: MECLIZINE HCL 25 MG TAB PO PRN (06:30)
[2017-12-03] MEDS ORDERED: LORAZEPAM 0.5 MG TAB PO PRN (06:30)
[2017-12-03] MEDS ORDERED: SERTRALINE HCL 50 MG TAB PO SCH (09:00)
[2017-12-03] MEDS ORDERED: CHLORPROMAZINE HCL 25 MG TAB PO SCH ×2 (09:00→21:00)
[2017-12-03] MEDS ORDERED: BENZTROPINE MESYLATE 1 MG TAB PO SCH (09:00)
[2017-12-03] MEDS ORDERED: NICOTINE 14 MG/24 HR TDSY TD STA (09:04)
[2017-12-03 12:38] VITALS: BP 144/76; PULSE 71; O2SAT 97
--- NOTE | 2017-12-03 15:20 | EMERGENCY ROOM VISIT NOTE ---
ED Visit Note First contact with patient: 07:14 I received this patient in signout at the change of shift from Dr. Barry, pending mental health bed search. Patient requested a nicotine patch which was ordered. The patient was accepted at the [facility] and secure transportation arrangements were made. Patient was transferred on a 201.
== END 2017-12-03 12:20 ==
LOC: C.EDB 23:29 → C.EDA 12-03 12:20
DX: R45.851 Suicidal ideations (principal); R44.0 Auditory hallucinations; R44.1 Visual hallucinations; F32.9 Major depressive disorder, single episode, unspecified; R79.89 Other specified abnormal findings of blood chemistry; F17.200 Nicotine dependence, unspecified, uncomplicated; Q85.01 Neurofibromatosis, type 1; Z88.8 Allergy status to other drugs, medicaments and biological substances; Z88.6 Allergy status to analgesic agent

== ENCOUNTER 2025-04-01 21:02 | Inpatient (IN) ==
[2025-04-01] MEDS: ONDANSETRON INJ 2 MG/ML 2 ML VIAL IV STA (22:16)
[2025-04-01] MEDS: SODIUM CHLORIDE 0.9% 1,000 ML IV SCH (22:16)
[2025-04-01 22:19] LABS: Amphetamines+Metham, Urine Neg (Neg); MDMA (Ecstacy), Urine Neg (Neg); Marijuana, Urine Pos (Neg)
[2025-04-01 22:21] LABS: Appearance Urine Clear (Clear); Bacteria Urine Automated None Seen (None Seen); Cast Urine Automated 0-2 /lpf (0-2); Epithelial Cell Urine Auto 0-2 /hpf (0-2); Glucose Urine UA Negative (Negative); WBC Urine Automated 0-5 /hpf (0-5)
[2025-04-01 22:39] LABS: Hematocrit (blood only) 41.7 % (42.0-52.0); Hemoglobin 14.6 g/dl (14.0-18.0); Immature Granulocytes # (auto) 0.06 K/uL (0.01-0.20); Immature Granulocytes % (auto) 0.6 %; Mean Corpuscular Hemoglobin 29.5 pg (25.0-34.0); Mean Corpuscular Volume 84.2 fL (80.0-100.0); Platelet Count 249 K/uL (130-400); RDW Standard Deviation 37.2 fL (36.4-46.3); Red Blood Count 4.95 M/uL (4.70-6.10); White Blood Count 10.15 K/ul (4.8-10.8)
[2025-04-01 23:06] LABS: Alanine Aminotransferase 12.0 U/L (7-52); Albumin Globulin Ratio 2.0 (0.9-2); Alkaline Phosphatase 52.0 U/L (34-104); Anion Gap 9.0 (3-11); Bilirubin,Total 0.7 mg/dl (0.2-1.0); Blood Urea Nitrogen 17.0 mg/dl (6-23); Calcium 9.2 mg/dl (8.6-10.3); Carbon Dioxide 22.0 mmol/L (21-32); Chloride 106.0 mmol/L (98-107); Creatinine Clr Calc Pharmacy 107.1 ml/min; Globulin 2.1 gm/dl (2.5-4.0); Glucose 74.0 mg/dl (70-99(Fasting)); Potassium 3.7 mmol/L (3.5-5.1); Sodium 137.0 mmol/L (136-145); Total Protein 6.4 gm/dl (6.0-8.3)
[2025-04-01 23:11] LABS: Acetaminophen < 3 ug/ml (10-30); Salicylate < 3.0 mg/dl (3.0-30)
[2025-04-01] MEDS: PROMETHAZINE 6.25 MG/50.25 ML BAG IV STA (23:11)
[2025-04-01] MEDS: FAMOTIDINE 20MG IV PUSH 20 MG/5 ML SYR IV STA (23:11)
[2025-04-01 23:21] LABS: Thyroid Stimulating Hormone 1.393 uIu/ml (0.300-4.500)
--- NOTE | 2025-04-01 23:52 | Emergency Department Note ---
History of Present Illness General Chief complaint: Mental Health Evaluation Stated complaint: VOMITING AFTER TAKING MEDICATION Time Seen by Provider: 04/01/25 21:11 History of Present Illness Provider complaint: Mental health evaluation nausea and vomiting 44-year-old male presenting to the emergency department for mental health evaluation nausea and vomiting. Patient states he is hearing voices telling him to kill himself. He states they are forcefully telling him to kill himself. Patient states he has been unable to take any of his psychiatric medications because he keeps vomiting. Home Medications Medication Instructions Recorded Confirmed Type lithium carbonate 600 mg capsule 600 mg PO AMHS 06/18/19 04/01/25 History albuterol sulfate 90 mcg/actuation 2 puff inhalation Q4H PRN Wheezing 12/06/24 04/01/25 History aerosol inhaler (Ventolin HFA) aripiprazole 15 mg tablet 15 mg PO QAM 12/06/24 04/01/25 History cholecalciferol (vitamin D3) 25 25 mcg PO DAILY 12/06/24 04/01/25 History mcg (1,000 unit) capsule (Vitamin D3) clonazepam 0.5 mg tablet 0.5 mg PO BID PRN ANXIETY/SLEEP 12/06/24 04/01/25 History clozapine 100 mg tablet 100 mg PO HS 12/06/24 04/01/25 History clozapine 200 mg tablet 400 mg PO BID 12/06/24 04/01/25 History cyclobenzaprine 10 mg tablet 10 mg PO BID PRN MUSCLE SPASMS 12/06/24 04/01/25 History famotidine 20 mg tablet 20 mg PO BID 12/06/24 04/01/25 History fluticasone fur. 100 mcg-umeclid 1 inh inhalation DAILY 12/06/24 04/01/25 History 62.5 mcg-vilant 25 mcg inhalat.powder (Trelegy Ellipta) fluticasone propionate 50 2 spray intranasal QAM 12/06/24 04/01/25 History mcg/actuation nasal spray,suspension meclizine 25 mg tablet 25 mg PO TID PRN DIZZINESS 12/06/24 04/01/25 History naproxen 500 mg tablet 500 mg PO BID PRN Pain 12/06/24 04/01/25 History pantoprazole 20 mg tablet,delayed 20 mg PO QAM 12/06/24 04/01/25 History release prazosin 1 mg capsule 1 mg PO QDL 12/06/24 04/01/25 History prazosin 2 mg capsule 2 mg PO .BID@ 1600 & HS 12/06/24 04/01/25 History prazosin 5 mg capsule 5 mg PO TID 12/06/24 04/01/25 History promethazine 25 mg tablet 25 mg PO Q6H PRN NAUSEA/VOMITING 12/06/24 04/01/25 History Allergies Allergy/AdvReac Type Severity Reaction Status Date / Time dimenhydrinate Allergy Severe VESTIBULAR Verified 12/06/24 17:15 SX betahistine Allergy Intermediate Rash Verified 12/06/24 17:15 nabumetone Allergy Intermediate RASH Verified 12/06/24 17:15 sertraline [From Zoloft] AdvReac Severe LIVER Verified 12/06/24 17:15 ENZYMES ELEVATED Past Med/Surg History Problem List (Updated 04/01/25 @ 23:55 by Stevie Healy MD) Suicidal ideations (Acute) Gastritis (Acute) Dehydration (Acute) Intractable nausea and vomiting (Acute) Dizziness (Acute) Medical History Neurofibromatosis, type I (von Recklinghausen's disease) Anxiety Meniere's disease Vertigo Surgical History History of neurologic surgery Family History Other No pertinent family history in first degree relatives Social History Smoking Status: Current some day smoker Tobacco Type: Pipe Preferred Language: [place] marital status: Single current occupational status: unemployed Feels Safe at Home: Yes Gender Identity: Male Physical Exam Vital Signs Vital Signs - 24 hr 04/01/25 21:04 04/01/25 22:19 Temperature 36.7 C Temperature Source Temporal Artery Scan Pulse Rate 62 Pulse Rate [Finger] 62 Respiratory Rate 18 16 Respiratory Effort / Characteristics Non-Labored Spontaneous Respiratory Depth Normal Respiratory Pattern Regular Blood Pressure 124/72 Blood Pressure [Right Arm] 120/77 Blood Pressure Mean 89 Blood Pressure Mean [Right Arm] 91 Pulse Oximetry 98 98 Oxygen Delivery Method Room Air Room Air Sepsis Recent Fever Within 48 Hours No Sepsis New/Unexplained Change in Mental Status N/A Sepsis Action Taken by Nursing No Action Required Physical Exam GENERAL: Disheveled. HENT: Exam performed. - Head: Normocephalic and atraumatic. EYES: Conjunctivae and EOM are normal. Right eye exhibits no discharge. Left eye exhibits no discharge. No scleral icterus. NECK: Normal range of motion. Neck supple. No JVD present. CV: Normal rate, regular rhythm, normal heart sounds and intact distal pulses. There is no peripheral edema. Palpable radial pulses bue. PULM/CHEST: Effort normal and breath sounds normal. No respiratory distress. No stridor. no wheezes. no rales. ABD: The abdomen is soft. There is no tenderness. NEURO: Motor and sensation grossly intact. SKIN: Skin is warm and dry. He is not diaphoretic. PSYCH: Suicidal ideation Course Course 2110: The patient was evaluated in room A8. A complete history and physical exam was performed Cardiac monitoring: An order was placed for continuous cardiac monitoring. The monitor shows a rate of 60 with sinus rhythm interpreted by md Medical records reviewed. Patient was seen earlier in the emergency department for nausea and vomiting. Patient had a negative workup including negative labs and negative CT of the abdomen pelvis. 2353: Vital signs stable. Patient requiring multiple doses of antiemetics. Labs are unremarkable. Patient will be admitted for intractable nausea and vomiting and then can have a psychiatric evaluation for suicidal ideation when admitted. [facility]. Administered Medications Discontinued Medications Sodium Chloride (Nss) 1,000 mls @ 999 mls/hr IV .Q1H1M KEE Stop: 04/01/25 22:15 Last Infusion: 04/01/25 23:24 Dose: Infused Documented By: Admin: 04/01/25 22:16 Dose: 999 mls/hr Documented By: RAUL Promethazine HCl (Phenergan) 6.25 mg in 50.25 mls @ 201 mls/hr IV NOW STA Stop: 04/01/25 23:13 Last Infusion: 04/01/25 23:30 Dose: Infused Documented By: Admin: 04/01/25 23:11 Dose: 201 mls/hr Documented By: RAUL Famotidine (Pepcid 20mg Iv Push) 20 mg in 5 mls @ 2.5 mls/min IV NOW STA Stop: 04/01/25 23:03 Last Admin: 04/01/25 23:11 Dose: 2.5 mls/min Documented By: RAUL Ondansetron HCl (Ondansetron Inj 2 Mg/Ml 2 Ml Vial) 4 mg IV NOW STA Stop: 04/01/25 21:32 Last Admin: 04/01/25 22:16 Dose: 4 mg Documented By: RAUL Medical Decision Making Medical Records Attestation: I reviewed the patient's medical records. Medical records reviewed. Patient was seen earlier in the emergency department for nausea and vomiting. Patient had a negative workup including negative labs and negative CT of the abdomen pelvis. Laboratory Data Attestation: I reviewed the patient's lab results. 04/01/25 22:11 04/01/25 22:11 Lab Results 04/01/25 04/01/25 04/01/25 Range/Units 21:26 21:45 22:11 WBC 10.15 (4.8-10.8) K/ul RBC 4.95 (4.70-6.10) M/uL Hgb 14.6 (14.0-18.0) g/dl Hct 41.7 L (42.0-52.0) % MCV 84.2 (80.0-100.0) fL MCH 29.5 (25.0-34.0) pg MCHC 35.0 (32.0-36.0) g/dL RDW Std Deviation 37.2 (36.4-46.3) fL RDW Coeff of [place]inka 12.3 (11.5-14.5) % Plt Count 249 (130-400) K/uL MPV 10.9 (9.4-12.4) fL Immature Gran % (Auto) 0.6 % Neut % (Auto) 63.0 % Lymph % (Auto) 27.3 % [place] % (Auto) 8.5 % Eos % (Auto) 0.1 % Baso % (Auto) 0.5 % Neut # (Auto) 6.40 (1.40-6.50) K/uL Lymph # (Auto) 2.77 (1.20-3.40) K/uL [place] # (Auto) 0.86 H (0.11-0.59) K/uL Eos # (Auto) 0.01 (0.00-0.50) K/uL Baso # (Auto) 0.05 (0.00-0.20) K/uL Immature Gran # (Auto) 0.06 (0.01-0.20) K/uL Sodium 137 (136-145) mmol/L Potassium 3.7 (3.5-5.1) mmol/L Chloride 106 (98-107) mmol/L Carbon Dioxide 22 (21-32) mmol/L Anion Gap 9 (3-11) BUN 17 (6-23) mg/dl Creatinine 1.05 (0.6-1.4) mg/dl Est Cr Clr Drug Dosing 107.1 ml/min eGFR 90.89 BUN/Creatinine Ratio 16.2 (10-20) Glucose 74 (70-99(Fasting)) mg/dl Calcium 9.2 (8.6-10.3) mg/dl Total Bilirubin 0.7 (0.2-1.0) mg/dl AST 10 L (13-39) U/L ALT 12 (7-52) U/L Alkaline Phosphatase 52 (34-104) U/L Total Protein 6.4 (6.0-8.3) gm/dl Albumin 4.3 (3.4-5.0) gm/dl Globulin 2.1 L (2.5-4.0) gm/dl Albumin/Globulin Ratio 2.0 (0.9-2) TSH 1.393 (0.300-4.500) uIu/ml Urine Color Yellow Urine Appearance Clear (Clear) Urine pH 6.0 (4.5-7.5) Ur Specific [place] > 1.045 H (1.000-1.030) Urine Protein 1+ H (Negative) Urine Glucose (UA) Negative (Negative) Urine Ketones 3+ H (Negative) Urine Blood Trace H (Negative) Urine Nitrite Negative (Negative) Urine Bilirubin Negative (Negative) Urine Urobilinogen Negative (Negative) Ur Leukocyte Esterase Negative (Negative) Urine WBC (Auto) 0-5 (0-5) /hpf Urine RBC (Auto) 11-20 H (0-2) /hpf U Hyaline Cast (Auto) 0-2 (0-2) /lpf U Epithel Cells (Auto) 0-2 (0-2) /hpf Urine Bacteria (Auto) None Seen (None Seen) Urine Sperm Present A (None Prsent) Urine Comment Salicylates < 3.0 L (3.0-30) mg/dl Urine Opiates Screen Neg (Neg) Ur Methadone, Qual Neg (Neg) Urine Fentanyl Screen Neg (Neg) Acetaminophen < 3 L (10-30) ug/ml Urine Barbiturates Neg (Neg) Ur Phencyclidine (PCP) Neg (Neg) U Amphetamin/Meth Scrn Neg (Neg) MDMA (Ecstasy) Screen Neg (Neg) U Benzodiazepines Scrn Neg (Neg) Ur Cocaine Metabolite Neg (Neg) U Marijuana (THC) Screen Pos H (Neg) Ethyl Alcohol mg/dL < 10.0 (<10.0) mg/dl SARS-CoV-2, RNA, NAAT NEGATIVE (NEGATIVE) ECG Data Attestation: I personally reviewed and interpreted this ECG as follows: Rate (beats per minute): 66 Rhythm: + normal sinus ECG Intervals/blocks: + Normal QRS, + Normal [place] and + Normal QT-c ECG ST segments: + Normal ST segments [facility] Narrative 2111: The patient was evaluated in room A8. A complete history and physical exam was performed Cardiac monitoring: An order was placed for continuous cardiac monitoring. The monitor shows a rate of 60 with sinus rhythm interpreted by me Medical records reviewed. Patient was seen earlier in the emergency department for nausea and vomiting. Patient had a negative workup including negative labs and negative CT of the abdomen pelvis. 2353: Vital signs stable. Patient requiring multiple doses of antiemetics. Labs are unremarkable. Patient will be admitted for intractable nausea and vomiting and then can have a psychiatric evaluation for suicidal ideation when admitted. [facility] be [facility]. Impression & Plan Intractable nausea and vomiting, Suicidal ideations Discharge Plan Visit Data Chief Complaint: Mental Health Evaluation Stated Complaint: VOMITING AFTER TAKING MEDICATION ED Provider: Stevie Healy Discharge Problem: Intractable nausea and vomiting, Suicidal ideations Patient Disposition: Admitted As Inpatient Condition: Fair Forms Stand Alone Forms: My [facility], Suicide Prevention Resources Prescriptions Prescriptions: No Action lithium carbonate 600 mg capsule 600 mg PO AMHS Rx Instructions: 2 capsules at bedtime cyclobenzaprine 10 mg tablet 10 mg PO BID PRN (Reason: MUSCLE SPASMS) Rx Instructions: take 1 tablet two times a day as needed for muscle spasms clozapine 100 mg tablet 100 mg PO HS Rx Instructions: LAST FILLED 10/17/24 FOR 30 DAYS. take one at bedtime prazosin 1 mg capsule 1 mg PO QDL Rx Instructions: TOTAL DOSE 6 MG @ 1200--TAKES WITH 5 MG CAP. take one cap at noon clonazepam 0.5 mg tablet 0.5 mg PO BID PRN (Reason: ANXIETY/SLEEP) Rx Instructions: take one or two tablets at night as needed for javan/sleep pantoprazole 20 mg tablet,delayed release (DR/EC) 20 mg PO QAM Rx Instructions: take 1 tablet by mouth in morning prazosin 5 mg capsule 5 mg PO TID Rx Instructions: TAKES AT NOON WITH 1 MG TAB-TOTAL 6 MG, THEN TAKES AT 1600 & HS WITH 2 MG TAB-TOTAL 7 MG. famotidine 20 mg tablet 20 mg PO BID Rx Instructions: once in am and once at bedtime meclizine 25 mg tablet 25 mg PO TID PRN (Reason: DIZZINESS) promethazine 25 mg tablet 25 mg PO Q6H PRN (Reason: NAUSEA/VOMITING) albuterol sulfate [Ventolin HFA] 90 mcg/actuation HFA aerosol inhaler 2 puff INHALATION Q4H PRN (Reason: Wheezing) fluticasone propionate 50 mcg/actuation spray,suspension 2 spray INTRANASAL QAM prazosin 2 mg capsule 2 mg PO .BID@ 1600 & HS Rx Instructions: TOTAL DOSE 7 MG---TAKES WITH 5 MG TAB @ 1600 & HS take 1 cap at 4pm for a total of 7mg and 1 cap at bedtime for a total of 7 mg naproxen 500 mg Tablet 500 mg PO BID PRN (Reason: Pain) cholecalciferol (vitamin D3) [Vitamin D3] 25 mcg (1,000 unit) Capsule 25 mcg PO DAILY aripiprazole 15 mg tablet 15 mg PO QAM Rx Instructions: one tablet in morning clozapine 200 mg tablet 400 mg PO BID Rx Instructions: two tablet in morning and two tablets before bedtime Trelegy Ellipta 100-62.5-25 mcg blister with device 1 inh INHALATION DAILY Referrals Referrals: Atul Guardado MD [Primary Care Provider] -
--- NOTE | 2025-04-02 00:13 | History & Physical Report ---
Date of Service April 02, 2025 Assessment & Plan (1) Acute gastroenteritis: Plan: Assessment and plan below following discussion of case with ED provider and reviewing patient history/pertinent normal/abnormal diagnostic test results. Acute gastroenteritis Rule out C. difficile Suicidality, history schizoaffective disorder, anxiety/mood disorder, asthma/COPD, stable DELFINA on CPAP prediabetes, hemoglobin A1c of 5 from 2023 memory impairment as per records, patient follows with [facility] neurolog[place] neurofibromatosis type I past tobacco/alcohol abuse OBS Admit to medical Supportive management for presumptive viral gastroenteritis Stool CS, stool C. difficile Psych consult re: suicidality Suicide precautions for now DVT prophylaxis. Lovenox subcu Full code Patient request for mother to be given updates regarding care. Ms. Blanche Banegas, contact #[phone]. Text document was generated using [employer] voice recognition software. It may contain grammatical or spelling errors. Kindly contact undersigned for clarification of any documentation item in question. History of Present Illness Chief Complaint: Nausea/vomiting, hearing voices to kill myself Primary Care Provider: Atul Guardado MD History obtained from patient and records. Medical history significant for asthma/COPD, DELFINA on CPAP, GERD, migraine, prediabetes, memory impairment as per records, neurofibromatosis type I, schizoaffective disorder, anxiety/mood disorder, past tobacco/alcohol abuse. Few days history of nausea, vomiting, watery diarrhea symptoms. Denies abdominal pain. No headache symptoms. Denies chest pain, SOB. Dizziness described as lightheadedness. Not sure about sick contacts. No recent antibiotics. No out-of-town travel or new restaurants. Patient consulted ER yesterday. Unremarkable CT imaging except for splenomegaly. Patient discharge with Carafate Rx for possible gastritis. Patient with persistent vomiting symptoms upon return home. Unable to keep pills down. Hearing voices telling him to kill himself. Patient return to ER for evaluation. Medical History as above Surgical History : Dental surgery, hydrocele repair, vestibular surgery Family History : Bipolar disorder, dementia, DM, hypertension, PE Personal/Social history : Past tobacco/alcohol abuse, disabled Allergies Allergy/AdvReac Type Severity Reaction Status Date / Time dimenhydrinate Allergy Severe VESTIBULAR Verified 12/06/24 17:15 SX betahistine Allergy Intermediate Rash Verified 12/06/24 17:15 nabumetone Allergy Intermediate RASH Verified 12/06/24 17:15 sertraline [From Zoloft] AdvReac Severe LIVER Verified 12/06/24 17:15 ENZYMES ELEVATED Home Medications Medication Instructions Recorded Confirmed Type lithium carbonate 600 mg capsule 1,200 mg PO HS 06/18/19 04/02/25 History albuterol sulfate 90 mcg/actuation 2 puff inhalation Q4H PRN Wheezing 12/06/24 04/01/25 History aerosol inhaler (Ventolin HFA) aripiprazole 15 mg tablet 15 mg PO QAM 12/06/24 04/01/25 History cholecalciferol (vitamin D3) 25 25 mcg PO DAILY 12/06/24 04/01/25 History mcg (1,000 unit) capsule (Vitamin D3) clonazepam 0.5 mg tablet 0.5 mg PO BID PRN ANXIETY/SLEEP 12/06/24 04/01/25 History clozapine 100 mg tablet 100 mg PO HS 12/06/24 04/01/25 History clozapine 200 mg tablet 400 mg PO BID 12/06/24 04/01/25 History cyclobenzaprine 10 mg tablet 10 mg PO BID PRN MUSCLE SPASMS 12/06/24 04/01/25 History famotidine 20 mg tablet 20 mg PO BID 12/06/24 04/01/25 History fluticasone fur. 100 mcg-umeclid 1 inh inhalation DAILY 12/06/24 04/01/25 History 62.5 mcg-vilant 25 mcg inhalat.powder (Trelegy Ellipta) fluticasone propionate 50 2 spray intranasal QAM 12/06/24 04/01/25 History mcg/actuation nasal spray,suspension meclizine 25 mg tablet 25 mg PO TID PRN DIZZINESS 12/06/24 04/01/25 History naproxen 500 mg tablet 500 mg PO BID PRN Pain 12/06/24 04/01/25 History pantoprazole 20 mg tablet,delayed 20 mg PO QAM 12/06/24 04/01/25 History release prazosin 1 mg capsule 1 mg PO QDL 12/06/24 04/01/25 History prazosin 2 mg capsule 2 mg PO .BID@ 1600 & HS 12/06/24 04/01/25 History prazosin 5 mg capsule 5 mg PO TID 12/06/24 04/01/25 History promethazine 25 mg tablet 25 mg PO Q6H PRN NAUSEA/VOMITING 12/06/24 04/01/25 History duloxetine 60 mg capsule,delayed 120 mg PO DAILY 04/02/25 04/02/25 History release Past Med/Surg History Problem List (Updated 04/02/25 @ 04:09 by Seven Wiseman MD) Acute gastroenteritis Suicidal ideations (Acute) Gastritis (Acute) Dehydration (Acute) Intractable nausea and vomiting (Acute) Dizziness (Acute) Medical History Neurofibromatosis, type I (von Recklinghausen's disease) Anxiety Meniere's disease Vertigo Surgical History History of neurologic surgery Family History Other No pertinent family history in first degree relatives Social History Smoking Status: Current some day smoker Tobacco Type: Pipe Preferred Language: [place] marital status: Single current occupational status: unemployed Feels Safe at Home: Yes Gender Identity: Male Review of Systems Review of Systems: As per HPI, all other systems reviewed and negative Physical Exam Physical Exam: GENERAL: Comfortable, pleasant, obese, no respiratory distress SKIN: Normal color, warm HEENT: [place] palpebral conjunctivae, no ptosis, dry buccal mucosa NECK : Supple, short neck, no tenderness CHEST : CTA, no tenderness HEART : RRR, no obvious murmurs ABDOMEN: Some distention, nontender EXTREMITIES : Minimal LE swelling, no LE tenderness, palpable pulses, no other conspicuous deformities noted NEUROLOGIC : Coherent, no facial asymmetry, no other gross focality Results & Data Results & Data Vital Signs (Past 12 Hours) Vital Signs Temp Pulse Pulse Resp BP BP Pulse Ox 04/01/25 22:19 62 16 120/77 98 04/01/25 21:04 36.7 C 62 18 124/72 98 O2 Del Method 04/01/25 22:19 Room Air 04/01/25 21:04 Room Air Laboratory Results Laboratory Results WBC 10.15 K/ul (4.8-10.8) 04/01/25 22:11 RBC 4.95 M/uL (4.70-6.10) 04/01/25 22:11 Hgb 14.6 g/dl (14.0-18.0) 04/01/25 22:11 Hct 41.7 % (42.0-52.0) L 04/01/25 22:11 MCV 84.2 fL (80.0-100.0) 04/01/25 22:11 MCH 29.5 pg (25.0-34.0) 04/01/25 22:11 MCHC 35.0 g/dL (32.0-36.0) 04/01/25 22:11 RDW Std Deviation 37.2 fL (36.4-46.3) 04/01/25 22:11 RDW Coeff of [place] 12.3 % (11.5-14.5) 04/01/25 22:11 Plt Count 249 K/uL (130-400) 04/01/25 22:11 MPV 10.9 fL (9.4-12.4) 04/01/25 22:11 Immature Gran % (Auto) 0.6 % 04/01/25 22: Neut % (Auto) 63.0 % 04/01/25 22: Lymph % (Auto) 27.3 % 04/01/25 22:11 [place] % (Auto) 8.5 % 04/01/25 22: Eos % (Auto) 0.1 % 04/01/25 22:11 Baso % (Auto) 0.5 % 04/01/25 22:11 Neut # (Auto) 6.40 K/uL (1.40-6.50) 04/01/25 22:11 Lymph # (Auto) 2.77 K/uL (1.20-3.40) 04/01/25 22:11 [place] # (Auto) 0.86 K/uL (0.11-0.59) H 04/01/25 22:11 Eos # (Auto) 0.01 K/uL (0.00-0.50) 04/01/25 22:11 Baso # (Auto) 0.05 K/uL (0.00-0.20) 04/01/25 22:11 Immature Gran # (Auto) 0.06 K/uL (0.01-0.20) 04/01/25 22:11 Sodium 137 mmol/L (136-145) 04/01/25 22:11 Potassium 3.7 mmol/L (3.5-5.1) 04/01/25 22:11 Chloride 106 mmol/L (98-107) 04/01/25 22:11 Carbon Dioxide 22 mmol/L (21-32) 04/01/25 22:11 Anion Gap 9 (3-11) 04/01/25 22:11 BUN 17 mg/dl (6-23) 04/01/25 22:11 Creatinine 1.05 mg/dl (0.6-1.4) 04/01/25 22:11 Est Cr Clr Drug Dosing 107.1 ml/min 04/01/25 22:11 eGFR 90.89 04/01/25 22:11 BUN/Creatinine Ratio 16.2 (10-20) 04/01/25 22:11 Glucose 74 mg/dl (70-99(Fasting)) 04/01/25 22:11 Calcium 9.2 mg/dl (8.6-10.3) 04/01/25 22:11 Total Bilirubin 0.7 mg/dl (0.2-1.0) 04/01/25 22:11 AST 10 U/L (13-39) L 04/01/25 22:11 ALT 12 U/L (7-52) 04/01/25 22:11 Alkaline Phosphatase 52 U/L (34-104) 04/01/25 22:11 Total Protein 6.4 gm/dl (6.0-8.3) 04/01/25 22:11 Albumin 4.3 gm/dl (3.4-5.0) 04/01/25 22:11 Globulin 2.1 gm/dl (2.5-4.0) L 04/01/25 22:11 Albumin/Globulin Ratio 2.0 (0.9-2) 04/01/25 22:11 TSH 1.393 uIu/ml (0.300-4.500) 04/01/25 22:11 Urine Color Yellow 04/01/25 21:26 Urine Appearance Clear (Clear) 04/01/25: Urine pH 6.0 (4.5-7.5) 04/01/25 21:26 Ur Specific [place] > 1.045 (1.000-1.030) H 04/01/25 21:26 Urine Protein 1+ (Negative) H 04/01/25 21:26 Urine Glucose (UA) Negative (Negative) 04/01/25 21: Urine Ketones 3+ (Negative) H 04/01/25 21: Urine Blood Trace (Negative) H 04/01/25 21:26 Urine Nitrite Negative (Negative) 04/01/25 21: Urine Bilirubin Negative (Negative) 04/01/25 21: Urine Urobilinogen Negative (Negative) 04/01/25 21: Ur Leukocyte Esterase Negative (Negative) 04/01/25 21:26 Urine WBC (Auto) 0-5 /hpf (0-5) 04/01/25 21: Urine RBC (Auto) 11-20 /hpf (0-2) H 04/01/25 21: U Hyaline Cast (Auto) 0-2 /lpf (0-2) 04/01/25 21: U Epithel Cells (Auto) 0-2 /hpf (0-2) 04/01/25 21: Urine Bacteria (Auto) None Seen (None Seen) 04/01/25 21: Urine Sperm Present (None Prsent) A 04/01/25 21: Urine Comment 04/01/25 21: Salicylates < 3.0 mg/dl (3.0-30) L 04/01/25 22:11 Urine Opiates Screen Neg (Neg) 04/01/25 21:26 Ur Methadone, Qual Neg (Neg) 04/01/25 21:26 Urine Fentanyl Screen Neg (Neg) 04/01/25 21: Acetaminophen < 3 ug/ml (10-30) L 04/01/25 22:11 Urine Barbiturates Neg (Neg) 04/01/25 21:26 Ur Phencyclidine (PCP) Neg (Neg) 04/01/25 21:26 U Amphetamin/Meth Scrn Neg (Neg) 04/01/25 21:26 MDMA (Ecstasy) Screen Neg (Neg) 04/01/25 21:26 U Benzodiazepines Scrn Neg (Neg) 04/01/25 21:26 Ur Cocaine Metabolite Neg (Neg) 04/01/25 21:26 U Marijuana (THC) Screen Pos (Neg) H 04/01/25 21:26 Ethyl Alcohol mg/dL < 10.0 mg/dl (<10.0) 04/01/25 22:11 SARS-CoV-2, RNA, NAAT NEGATIVE (NEGATIVE) 04/01/25 21:45 Diagnostic Findings EKG as per my interpretation :Rate 65, NSR, normal axis, no ischemia
[2025-04-02] MEDS ORDERED: PROMETHAZINE 12.5 MG/50.5 ML BAG IV PRN (00:14)
[2025-04-02 02:43] LABS: Hematocrit (blood only) 39.5 % (42.0-52.0); Hemoglobin 13.3 g/dl (14.0-18.0); Immature Granulocytes # (auto) 0.04 K/uL (0.01-0.20); Immature Granulocytes % (auto) 0.4 %; Mean Corpuscular Hemoglobin 28.2 pg (25.0-34.0); Mean Corpuscular Volume 83.9 fL (80.0-100.0); Platelet Count 214 K/uL (130-400); RDW Standard Deviation 37.5 fL (36.4-46.3); Red Blood Count 4.71 M/uL (4.70-6.10); White Blood Count 9.66 K/ul (4.8-10.8)
[2025-04-02] MEDS: SODIUM CHLORIDE 0.9% 1,000 ML IV ONE (02:45)
[2025-04-02 02:59] LABS: Anion Gap 6.0 (3-11); Blood Urea Nitrogen 16.0 mg/dl (6-23); Calcium 8.7 mg/dl (8.6-10.3); Carbon Dioxide 22.0 mmol/L (21-32); Chloride 110.0 mmol/L (98-107); Creatinine Clr Calc Pharmacy 118.4 ml/min; Glucose 70.0 mg/dl (70-99(Fasting)); Potassium 3.6 mmol/L (3.5-5.1); Sodium 138.0 mmol/L (136-145)
[2025-04-02] MEDS ORDERED: clonazePAM 0.5 MG TAB PO PRN (03:32)
[2025-04-02] MEDS: FLUTICASONE PROPIONATE NA SPR 16 GM BTL SCH (08:37)
[2025-04-02] MEDS: FAMOTIDINE 20 MG TAB PO SCH (08:38)
[2025-04-02] MEDS: ENOXAPARIN INJ 40 MG/0.4 ML SYR SQ SCH (08:38)
[2025-04-02] MEDS: ARIPiprazole 15 MG TAB PO SCH (08:38)
[2025-04-02] MEDS ORDERED: LITHIUM CARBONATE 300 MG TAB PO SCH ×2 (09:00→21:00)
[2025-04-02 10:47] LABS: iSTAT Art Bld Gas Base Excess -7.0 meg/L (-9-1.8); iSTAT Art Bld Gas pCO2 Correct 36 mmHg (35-46); iSTAT Art Bld Gas pH Corrected 7.327 (7.35-7.45); iSTAT Arterial Blood Gas pO2 C 53
[2025-04-02 10:51] LABS: Hematocrit (blood only) 40.4 % (42.0-52.0); Hemoglobin 13.8 g/dl (14.0-18.0); Immature Granulocytes # (auto) 0.05 K/uL (0.01-0.20); Immature Granulocytes % (auto) 0.6 %; Mean Corpuscular Hemoglobin 28.5 pg (25.0-34.0); Mean Corpuscular Volume 83.3 fL (80.0-100.0); Platelet Count 202 K/uL (130-400); RDW Standard Deviation 37.1 fL (36.4-46.3); Red Blood Count 4.85 M/uL (4.70-6.10); White Blood Count 8.20 K/ul (4.8-10.8)
--- NOTE | 2025-04-02 10:52 | Electrocardiogram Report ---
Test Reason : Blood Pressure : */* mmHG Vent. Rate : 66 BPM Atrial Rate : 66 BPM P-R Int : 148 ms QRS Dur : 108 ms QT Int : 426 ms P-R-T Axes : 22 48 75 degrees QTcB Int : 446 ms Normal sinus rhythm Normal ECG When compared with ECG of 06-Dec-2024 16:33, Nonspecific T wave abnormality no longer evident in Anterior leads Confirmed by Andrew Moyer ([id number]) on 04/02/2025 10:52:33 AM Referred By: REFERRED SELF Confirmed By: Andrew Moyer
--- NOTE | 2025-04-02 10:55 | CT Scan Report ---
CT head/brain wo con CLINICAL HISTORY: AMS. TECHNIQUE: Multiple axial CT images of the head were obtained without contrast. A dose lowering tech nique was utilized adhering to the principles of ALARA. CT DOSE: 625.8 mGy.cm COMPARISON: 12/06/2024 FINDINGS: There is motion artifact. No intracranial hemorrhage seen. No mass effect, midline shift, o r hydrocephalus. No skull fracture seen. Visualized paranasal sinuses are clear. Stable small plate l aterally at the left temporal bone with underlying partial mastoidectomy. IMPRESSION: Mildly limited exam due to medication. No acute findings seen. ACT 112: Negative or not required by law. The above report was generated using voice recognition software. It may contain grammatical, syntax o r spelling errors. Electronically signed by: Shaka Green M.D. 04/02/2025 10:53 AM
[2025-04-02 11:03] LABS: Anion Gap 10.0 (3-11); Blood Urea Nitrogen 16.0 mg/dl (6-23); Calcium 9.1 mg/dl (8.6-10.3); Carbon Dioxide 20.0 mmol/L (21-32); Chloride 108.0 mmol/L (98-107); Creatinine Clr Calc Pharmacy 120.9 ml/min; Glucose 99.0 mg/dl (70-99(Fasting)); Potassium 3.7 mmol/L (3.5-5.1); Sodium 138.0 mmol/L (136-145)
--- NOTE | 2025-04-02 11:36 | Communication Note ---
Date of Service: April 02, 2025 Code purple called due to patient appearing lethargic and snoring. Patient was immediately evaluated at bedside. He was sleepy but awake able by voice. He was able to follow all commands; no focal neurological deficit. Stat ABG ordered; unable to obtain. VBG, BMP and CBC reviewed. CT head without contrast did not show any acute finding. Suspect patient's change in mentation is likely secondary to medication he received in a.m. On physical examination; Constitutional: Sleepy; awake evaluate voice. Able to follow commands. Respiratory: Bilateral clear breath sound Cardiovascular: RRR, no murmur, no edema Vessels: no JVD or carotid bruit Chest: normal inspection of chest Abdomen: normal bowel sounds, soft, nontender, no hepatosplenomegaly Musculoskeletal: no cyanosis or clubbing, extremities motor strength 5/5 Skin: no rashes, warm and dry normal turgor Neurologic: PERRL, EOMI, accommodation nl, no face palsy, no dysarthria CN's II-XI intact bilaterally and moves all extremities Acute gastroenteritis Possible hyperemesis cannabinoid syndrome Patient presents with nausea, vomiting CT abdomen pelvisno acute finding U-Tox positive for THC Continue antiemetics; advance diet as tolerated Psych consulted for comanagement; appreciate recommendation Full progress note to follow tomorrow a.m. Please note the above document was generated using voice recognition software. It may contain grammatical, syntax or spelling errors. Any formal questions or concerns about the content, text or information contained within the body of this dictation should be directly addressed to the provider for clarification
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
[2025-04-02] MEDS: PRAZOSIN HCL 1 MG CAP PO SCH ×2 (13:36→16:12)
[2025-04-02] MEDS ORDERED: PRAZOSIN HCL 1 MG CAP PO SCH (16:00)
[2025-04-02] MEDS: LITHIUM CARBONATE 300 MG TAB PO SCH (21:06)
[2025-04-02] MEDS: clonazePAM 0.5 MG TAB PO PRN (21:07)
[2025-04-03] MEDS: MELATONIN 3 MG TAB PO PRN (00:47)
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
[2025-04-03] MEDS ORDERED: PRAZOSIN HCL 1 MG CAP PO SCH (09:00)
[2025-04-03] MEDS: PRAZOSIN HCL 1 MG CAP PO SCH ×2 (12:15→17:16)
[2025-04-03 12:22] LABS: Hematocrit (blood only) 40.0 % (42.0-52.0); Hemoglobin 13.5 g/dl (14.0-18.0); Immature Granulocytes # (auto) 0.02 K/uL (0.01-0.20); Immature Granulocytes % (auto) 0.3 %; Mean Corpuscular Hemoglobin 28.1 pg (25.0-34.0); Mean Corpuscular Volume 83.3 fL (80.0-100.0); Platelet Count 206 K/uL (130-400); RDW Standard Deviation 37.9 fL (36.4-46.3); Red Blood Count 4.80 M/uL (4.70-6.10); White Blood Count 5.99 K/ul (4.8-10.8)
[2025-04-03 12:48] LABS: Anion Gap 6.0 (3-11); Blood Urea Nitrogen 8.0 mg/dl (6-23); Calcium 9.5 mg/dl (8.6-10.3); Carbon Dioxide 25.0 mmol/L (21-32); Chloride 111.0 mmol/L (98-107); Creatinine Clr Calc Pharmacy 117.2 ml/min; Glucose 100.0 mg/dl (70-99(Fasting)); Potassium 4.0 mmol/L (3.5-5.1); Sodium 142.0 mmol/L (136-145)
[2025-04-03] MEDS: MAGNESIUM CITRATE 296 ML/BTL PO STA (13:25)
--- NOTE | 2025-04-03 13:34 | Hospitalist Progress Note ---
Date of Service April 03, 2025 Assessment & Plan (1) Schizophrenia, chronic condition: (2) Intractable nausea and vomiting: Plan Acute gastroenteritis Possible hyperemesis cannabinoid syndrome Patient presents with nausea, vomiting CT abdomen pelvisno acute finding U-Tox positive for THC Continue on antiemetics; patient tolerating diet well without any issues. Chronic schizophrenia Suicidal ideation Patient was not able to take his medication due to nausea/vomiting prompting auditory hallucinations Psychiatry consulted for comanagement; patient's clozapine restarted at 50 mg twice daily; plan to gradually increase it by 25 mg twice daily daily up to 400 mg twice daily [place] dose is currently at 600 mg at bedtime; Abilify has been decreased to 10 mg daily Continue prazosin Continue one-to-one as per psychiatry DVT prophylaxis Lovenox Full code Time spent evaluating patient, direct bedside care, chart review, placing orders, interpretation of diagnostic studies, discussion with consultants, patient, and family members, as well as other required patient management activities is 50 minutes Please note the above document was generated using voice recognition software. It may contain grammatical, syntax or spelling errors. Any formal questions or concerns about the content, text or information contained within the body of this dictation should be directly addressed to the provider for clarification Admission and Anticipated Discharge Date Admission Date: April 03, 2025 Subjective Patient seen and examined at bedside. He reports the nausea and vomiting has improved Reports constipation; no diarrhea Review of Systems Review of Systems: All systems reviewed & are unremarkable except as noted in Subjective Physical Exam Physical Exam: GENERAL: Comfortable, pleasant, no respiratory distress SKIN: Normal color, warm HEENT: [place] palpebral conjunctivae, no ptosis, dry buccal mucosa NECK : Supple, short neck, no tenderness CHEST : CTA, no tenderness HEART : RRR, no obvious murmurs ABDOMEN: Some distention, nontender EXTREMITIES : Minimal LE swelling, no LE tenderness, palpable pulses, no other conspicuous deformities noted NEUROLOGIC : Coherent, no facial asymmetry, no other gross focality Results & Data Results & Data Vital Signs (Past 12 Hours) Vital Signs Temp Pulse Resp BP Pulse Ox O2 Del Method 04/03/25 12:14 73 126/76 04/03/25 08:41 78 118/72 04/03/25 07:14 36.5 C 73 24 139/81 98 Room Air
--- NOTE | 2025-04-03 19:38 | Communication Note ---
Date of Service: April 03, 2025 Patient asking for laxative from RN. No BM for about a week as per patient account. Conflicting story given patient patient complaints of diarrhea symptoms on admission few days ago. Lactulose trial
[2025-04-03] MEDS: MAGNESIUM OXIDE 400 MG TAB PO SCH (20:08)
[2025-04-03] MEDS: LACTULOSE SYRUP 20 GM/30 ML UDC PO ONE (20:09)
[2025-04-03] MEDS: DOCUSATE SODIUM/SENNA 50/8.6MG TAB PO SCH (20:09)
[2025-04-04 06:22] LABS: Marijuana Quant, GCMS Urine 82 ng/mL (<5)
[2025-04-04 08:42] LABS: Cdiff Toxin B Gene (2yr or >) Negative Cdiff Gene (Neg)
[2025-04-04] MEDS: POLYETHYLENE (MIRALAX) 17 GM PACK PO SCH (09:13)
[2025-04-04 09:17] LABS: Adenovirus F 40/41 PCR Not Detected (NotDetected); Campylobacter PCR Not Detected (NotDetected); Enteroaggregative E.coli(EAEC) Not Detected (NotDetected); Shiga-like Toxin E.coli (STEC) Not Detected (NotDetected); Vibrio species PCR Not Detected (NotDetected)
--- NOTE | 2025-04-04 13:11 | Hospitalist Progress Note ---
Date of Service April 04, 2025 Assessment & Plan (1) Schizophrenia, chronic condition: (2) Intractable nausea and vomiting: Plan Acute gastroenteritis Possible hyperemesis cannabinoid syndrome Patient presents with nausea, vomiting CT abdomen pelvisno acute finding U-Tox positive for THC Continue on antiemetics; patient tolerating diet well without any issues. Chronic schizophrenia Suicidal ideation Patient was not able to take his medication due to nausea/vomiting prompting auditory hallucinations Psychiatry consulted for comanagement; patient's clozapine restarted at 50 mg twice daily; plan to gradually increase it by 25 mg twice daily daily up to 400 mg twice daily [place] dose is currently at 600 mg at bedtime; Abilify has been decreased to 10 mg daily Continue prazosin Continue one-to-one as per psychiatry DVT prophylaxis Lovenox Full code Time spent evaluating patient, direct bedside care, chart review, placing orders, interpretation of diagnostic studies, discussion with consultants, patient, and family members, as well as other required patient management activities is 50 minutes Please note the above document was generated using voice recognition software. It may contain grammatical, syntax or spelling errors. Any formal questions or concerns about the content, text or information contained within the body of this dictation should be directly addressed to the provider for clarification Admission and Anticipated Discharge Date Admission Date: April 03, 2025 Subjective Patient seen and examined at bedside. He is tolerating diet well; no more nausea/vomiting. He also had a bowel movement. He continues to report auditory hallucinations. Review of Systems Review of Systems: All systems reviewed & are unremarkable except as noted in Subjective Physical Exam Physical Exam: GENERAL: Comfortable, pleasant, no respiratory distress SKIN: Normal color, warm HEENT: [place] palpebral conjunctivae, no ptosis, dry buccal mucosa NECK : Supple, short neck, no tenderness CHEST : CTA, no tenderness HEART : RRR, no obvious murmurs ABDOMEN: Some distention, nontender EXTREMITIES : Minimal LE swelling, no LE tenderness, palpable pulses, no other conspicuous deformities noted NEUROLOGIC : Coherent, no facial asymmetry, no other gross focality Results & Data Results & Data Vital Signs (Past 12 Hours) Vital Signs Temp Pulse Resp BP Pulse Ox O2 Del Method 04/04/25 06:55 36.3 C L 68 18 130/77 98 Room Air
[2025-04-04] MEDS: ACETAMINOPHEN 325 MG TAB PO PRN (15:32)
[2025-04-04] MEDS: NAPROXEN 250 MG TAB PO PRN (16:38)
[2025-04-05 07:27] LABS: Hematocrit (blood only) 38.7 % (42.0-52.0); Hemoglobin 13.4 g/dl (14.0-18.0); Mean Corpuscular Hemoglobin 29.3 pg (25.0-34.0); Mean Corpuscular Volume 84.5 fL (80.0-100.0); Platelet Count 205 K/uL (130-400); RDW Standard Deviation 37.7 fL (36.4-46.3); Red Blood Count 4.58 M/uL (4.70-6.10); White Blood Count 5.41 K/ul (4.8-10.8)
[2025-04-05 07:51] LABS: Immature Granulocytes # (auto) 0.02 K/uL (0.01-0.20); Immature Granulocytes % (auto) 0.4 %
--- NOTE | 2025-04-05 08:53 | Hospitalist Progress Note ---
Date of Service April 05, 2025 Assessment & Plan (1) Schizophrenia, chronic condition: (2) Intractable nausea and vomiting: Plan Acute gastroenteritis-resolved Possible hyperemesis cannabinoid syndrome Patient presents with nausea, vomiting CT abdomen pelvisno acute finding U-Tox positive for THC Continue on antiemetics; patient tolerating diet well without any issues. Chronic schizophrenia Suicidal ideation Patient was not able to take his medication due to nausea/vomiting prompting auditory hallucinations Psychiatry consulted for comanagement; patient's clozapine restarted at 50 mg twice daily; plan to gradually increase it by 25 mg twice daily daily up to 400 mg twice daily [place] dose is currently at 600 mg at bedtime; decreased from 1200mg at night. Abilify has been decreased to 10 mg daily from 15mg daily at home Continue prazosin Continue one-to-one as per psychiatry appreciate psychiatry input regarding further dose titration DVT prophylaxis Lovenox Full code Time spent evaluating patient, direct bedside care, chart review, placing orders, interpretation of diagnostic studies, discussion with consultants, patient, and family members, as well as other required patient management activities is 50 minutes Please note the above document was generated using voice recognition software. It may contain grammatical, syntax or spelling errors. Any formal questions or concerns about the content, text or information contained within the body of this dictation should be directly addressed to the provider for clarification Admission and Anticipated Discharge Date Admission Date: April 03, 2025 Subjective Patient seen and examined at bedside. He continues to report unable to sleep at night; continues to have auditory hallucinations. No nausea or vomiting. Tolerating diet well. Review of Systems Review of Systems: All systems reviewed & are unremarkable except as noted in Subjective Physical Exam Physical Exam: GENERAL: Comfortable, pleasant, no respiratory distress SKIN: Normal color, warm HEENT: [place] palpebral conjunctivae, no ptosis, dry buccal mucosa NECK : Supple, short neck, no tenderness CHEST : CTA, no tenderness HEART : RRR, no obvious murmurs ABDOMEN: Some distention, nontender EXTREMITIES : Minimal LE swelling, no LE tenderness, palpable pulses, no other conspicuous deformities noted NEUROLOGIC : Coherent, no facial asymmetry, no other gross focality Results & Data Results & Data Vital Signs (Past 12 Hours) Vital Signs Temp Pulse Resp BP BP Pulse Ox O2 Del Method 04/05/25 07:07 61 18 120/67 95 Room Air 04/04/25 23:12 36.4 C L 62 18 127/70 98 Room Air
[2025-04-05 13:56] VITALS: PULSE 75; O2SAT 97
--- NOTE | 2025-04-05 14:26 | Discharge Summary ---
Date of Service April 05, 2025 Admission HPI Per Admitting Provider History obtained from patient and records. Medical history significant for asthma/COPD, DELFINA on CPAP, GERD, migraine, prediabetes, memory impairment as per records, neurofibromatosis type I, schizoaffective disorder, anxiety/mood disorder, past tobacco/alcohol abuse. Few days history of nausea, vomiting, watery diarrhea symptoms. Denies abdominal pain. No headache symptoms. Denies chest pain, SOB. Dizziness described as lightheadedness. Not sure about sick contacts. No recent antibiotics. No out-of-town travel or new restaurants. Patient consulted ER yesterday. Unremarkable CT imaging except for splenomegaly. Patient discharge with Carafate Rx for possible gastritis. Patient with persistent vomiting symptoms upon return home. Unable to keep pills down. Hearing voices telling him to kill himself. Patient return to ER for evaluation. Medical History as above Surgical History : Dental surgery, hydrocele repair, vestibular surgery Family History : Bipolar disorder, dementia, DM, hypertension, PE Personal/Social history : Past tobacco/alcohol abuse, disabled Admission Exam Per Admitting Provider GENERAL: Comfortable, pleasant, obese, no respiratory distress SKIN: Normal color, warm HEENT: [place] palpebral conjunctivae, no ptosis, dry buccal mucosa NECK : Supple, short neck, no tenderness CHEST : CTA, no tenderness HEART : RRR, no obvious murmurs ABDOMEN: Some distention, nontender EXTREMITIES : Minimal LE swelling, no LE tenderness, palpable pulses, no other conspicuous deformities noted NEUROLOGIC : Coherent, no facial asymmetry, no other gross focality Principal Diagnosis Acute gastroenteritis Possible hyperemesis cannabinoid syndrome Chronic schizophrenia Suicidal ideation Discharge Exam GENERAL: Comfortable, pleasant, no respiratory distress SKIN: Normal color, warm HEENT: [place] palpebral conjunctivae, no ptosis, dry buccal mucosa NECK : Supple, short neck, no tenderness CHEST : CTA, no tenderness HEART : RRR, no obvious murmurs ABDOMEN: Some distention, nontender EXTREMITIES : Minimal LE swelling, no LE tenderness, palpable pulses, no other conspicuous deformities noted NEUROLOGIC : Coherent, no facial asymmetry, no other gross focality Discharge Data Allergies Allergy/AdvReac Type Severity Reaction Status Date / Time dimenhydrinate Allergy Severe VESTIBULAR Verified 12/06/24 17:15 SX betahistine Allergy Intermediate Rash Verified 12/06/24 17:15 nabumetone Allergy Intermediate RASH Verified 12/06/24 17:15 sertraline [From Zoloft] AdvReac Severe LIVER Verified 12/06/24 17:15 ENZYMES ELEVATED Consultations 04/01/25 23:52 ED Decision to Admit Stat 04/02/25 01:53 Consult Psychiatry Routine Ordered Studies 04/02/25 10:19 CT head/brain wo con Stat Hospital Course (1) Schizophrenia, chronic condition: (2) Intractable nausea and vomiting: Plan Acute gastroenteritis-resolved Possible hyperemesis cannabinoid syndrome Patient presents with nausea, vomiting CT abdomen pelvisno acute finding U-Tox positive for THC Continue on antiemetics; patient tolerating diet well without any issues. Chronic schizophrenia Suicidal ideation Patient was not able to take his medication due to nausea/vomiting prompting auditory hallucinations Psychiatry consulted for comanagement; patient's clozapine restarted at 50 mg twice daily; plan to gradually increase it by 25 mg twice daily daily up to 400 mg twice daily [place] dose is currently at 600 mg at bedtime; decreased from 1200mg at night. Abilify has been decreased to 10 mg daily from 15mg daily at home Continue prazosin Patient transferred to [facility] [[email or web address]] for further evaluation as per psychiatry recommendation. No meds have been changed at that discharge as patient dosing of the medication will be titrated at [facility] [[email or web address]] Please note the above document was generated using voice recognition software. It may contain grammatical, syntax or spelling errors. Any formal questions or concerns about the content, text or information contained within the body of this dictation should be directly addressed to the provider for clarification Total Time Total Time Spent Total Time Spent (In Minutes): 45 Total Time Includes: Examination of the Patient, Discharge Planning, Medication Reconciliation, Communication With Other Providers and Other Discharge Plan Discharge Items Patient Disposition: Transfer Behavioral Health Fac Reason For Visit: N/V, SUICIDALITY Discharge Diagnosis: Acute gastroenteritis-resolved Possible hyperemesis cannabinoid syndrome Chronic schizophrenia Suicidal ideation Condition on Discharge: Fair Activity: Resume your previous activity Non-emergency contact: Primary Care Provider Call non-emergency contact if: you have any medication questions and your symptoms worsen Follow-up/Referrals: Atul Guardado MD [Primary Care Provider] - (Date & Time 04/09/2025 11:00 AM Provider: Atul Guardado III, MD [facility] ) Diet: Regular Pending Studies at Discharge: No Stand-Alone Forms: My [facility], Smoking Cessation Medications and DC Order Prescriptions: Continued lithium carbonate 600 mg capsule 1,200 mg PO HS Rx Instructions: 2 capsules at bedtime cyclobenzaprine 10 mg tablet 10 mg PO BID PRN (Reason: MUSCLE SPASMS) Rx Instructions: take 1 tablet two times a day as needed for muscle spasms clozapine 100 mg tablet 100 mg PO HS Rx Instructions: LAST FILLED 10/17/24 FOR 30 DAYS. take one at bedtime prazosin 1 mg capsule 1 mg PO QDL Rx Instructions: TOTAL DOSE 6 MG @ 1200--TAKES WITH 5 MG CAP. take one cap at noon clonazepam 0.5 mg tablet 0.5 mg PO BID PRN (Reason: ANXIETY/SLEEP) Rx Instructions: take one or two tablets at night as needed for javan/sleep pantoprazole 20 mg tablet,delayed release (DR/EC) 20 mg PO QAM Rx Instructions: take 1 tablet by mouth in morning prazosin 5 mg capsule 5 mg PO TID Rx Instructions: TAKES AT NOON WITH 1 MG TAB-TOTAL 6 MG, THEN TAKES AT 1600 & HS WITH 2 MG TAB-TOTAL 7 MG. famotidine 20 mg tablet 20 mg PO BID Rx Instructions: once in am and once at bedtime meclizine 25 mg tablet 25 mg PO TID PRN (Reason: DIZZINESS) albuterol sulfate [Ventolin HFA] 90 mcg/actuation HFA aerosol inhaler 2 puff INHALATION Q4H PRN (Reason: Wheezing) fluticasone propionate 50 mcg/actuation spray,suspension 2 spray INTRANASAL QAM prazosin 2 mg capsule 2 mg PO .BID@ 1600 & HS Rx Instructions: TOTAL DOSE 7 MG---TAKES WITH 5 MG TAB @ 1600 & HS take 1 cap at 4pm for a total of 7mg and 1 cap at bedtime for a total of 7 mg naproxen 500 mg Tablet 500 mg PO BID PRN (Reason: Pain) cholecalciferol (vitamin D3) [Vitamin D3] 25 mcg (1,000 unit) Capsule 25 mcg PO DAILY aripiprazole 15 mg tablet 15 mg PO QAM Rx Instructions: one tablet in morning clozapine 200 mg tablet 400 mg PO BID Rx Instructions: two tablet in morning and two tablets before bedtime Trelegy Ellipta 100-62.5-25 mcg blister with device 1 inh INHALATION DAILY duloxetine 60 mg capsule,delayed release(DR/EC) 120 mg PO DAILY Discontinued promethazine 25 mg tablet 25 mg PO Q6H PRN (Reason: NAUSEA/VOMITING) Discharge Orders: Discharge Order (Routine); Ordered 04/05/25 Ordered By: Yaw Ellington Admission Data Admit Date/Time: 04/03/25 13:05 Attending Provider: Yaw Ellington Admit Provider: Seven Wiseman Primary Care Provider: Atul Guardado Other Providers: Seven Wiseman; Dee Song; Shaka Calvillo; Barby Baer; Ariane Guzman; Ravin Clancy; Lori Evans; Azalea Carlos
[2025-04-05 15:30] VITALS: BP 121/70; RESP 18; TEMP 98
[2025-04-05] MEDS ORDERED: ALBUTEROL HFA 8 GM INHALER INH PRN (15:30)
[2025-04-05] MEDS: FLUTICASONE/VILANTEROL 200/25MCG 14 PUFFS/INHALER INH SCH (16:13)
[2025-04-05] MEDS: UMECLIDINIUM BROMIDE 62.5MCG/BLISTER 7 PUFFS/INHALER INH SCH (16:13)
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
== END 2025-04-05 19:59 | DRG 392 ==
LOC: ED 21:02 → EDINP 21:02 → SUATTDRO 04-02 00:13 → 3W 04-02 01:53

== ENCOUNTER 2025-04-05 15:41 | Inpatient (IN) ==
[2025-04-05] MEDS ORDERED: ALUMINUM/MAGNESIUM SUSP 30 ML UDC PO PRN (20:12)
[2025-04-05] MEDS ORDERED: SODIUM CHLORIDE 0.65% NA SOLN 45 ML (OCEAN) PRN (20:12)
[2025-04-05] MEDS ORDERED: ALBUTEROL HFA 8 GM INHALER INH PRN (20:15)
[2025-04-05] MEDS: PRAZOSIN HCL 1 MG CAP PO SCH (21:13)
[2025-04-05] MEDS: LITHIUM CARBONATE 300 MG TAB PO SCH (21:14)
[2025-04-05] MEDS: clonazePAM 1 MG TAB PO PRN (21:15)
[2025-04-05] MEDS: FAMOTIDINE 20 MG TAB PO SCH (21:17)
[2025-04-05] MEDS: CYCLOBENZAPRINE HCL 10 MG TAB PO PRN (21:24)
[2025-04-06] MEDS: FLUTICASONE PROPIONATE NA SPR 16 GM BTL SCH (08:35)
[2025-04-06] MEDS: CHOLECALCIFEROL 25 MCG (1000 UNITS) TAB PO SCH (08:35)
[2025-04-06] MEDS: PRAZOSIN HCL 1 MG CAP PO SCH (08:36)
[2025-04-06] MEDS: FLUTICASONE FUROATE 100MCG 14 PUFFS/INHALER INH SCH (08:36)
[2025-04-06] MEDS: UMECLIDINIUM/VILANTEROL 62.5/25MCG 7 PUFFS/INHALER INH SCH (08:37)
[2025-04-06] MEDS ORDERED: NON-FORMULARY MEDICATION (Fluticasone-Umeclidin-Vilanter [Trelegy Ellipta] 100-62.5-25 mcg INH SCH (09:00)
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
[2025-04-06] MEDS: LIDOCAINE 5% 1 PATCH TD SCH (11:50)
[2025-04-06] MEDS: DOCUSATE SODIUM 100 MG CAP PO SCH (20:57)
[2025-04-06] MEDS: REMOVE LIDODERM PATCH SCH (21:00)
[2025-04-07] MEDS: ACETAMINOPHEN 325 MG TAB PO PRN (08:31)
[2025-04-07] MEDS: POLYETHYLENE (MIRALAX) 17 GM PACK PO SCH (08:33)
[2025-04-07 08:48] LABS: Cholesterol 173.0 mg/dl (0-200); HDL Cholesterol 37.0 mg/dl; Triglycerides 107.0 mg/dl (0-150)
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
[2025-04-07 09:11] LABS: Hemoglobin A1C 4.6 % (4.5-5.6)
[2025-04-07] MEDS: DOXAZosin MESYLATE TAB 2 MG TAB PO SCH (20:34)
[2025-04-07] MEDS: LITHIUM CARBONATE 300 MG TAB PO SCH (20:35)
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
[2025-04-09] MEDS: GLYCOPYRROLATE 1 MG TAB PO SCH (14:37)
[2025-04-09] MEDS: REMOVE CLONIDINE PATCH SCH (14:45)
[2025-04-09] MEDS: CHECK CLONIDINE PATCH PLACEMENT SCH (16:11)
[2025-04-09] MEDS: LITHIUM CARBONATE 300 MG TAB PO SCH (20:28)
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
[2025-04-10] MEDS: GLYCOPYRROLATE 1 MG TAB PO SCH (20:36)
[2025-04-11] MEDS: MAGNESIUM HYDROXIDE SUSP 30 ML UDC PO PRN (06:01)
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
[2025-04-11] MEDS: SENNA 8.6 MG TAB PO SCH (13:57)
[2025-04-12] MEDS: ARIPiprazole 5 MG TAB PO PRN (07:00)
[2025-04-12] MEDS: ARIPiprazole 15 MG TAB PO SCH (08:05)
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
[2025-04-12] MEDS: LACTULOSE SYRUP 20 GM/30 ML UDC PO ONE (12:54)
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
[2025-04-13] MEDS: IPRATROPIUM BROMIDE NASAL SPRAY 0.06% 15ML NAE SCH (20:35)
--- NOTE | 2025-04-14 10:33 | XRay Report ---
HANNAH CLINICAL HISTORY: Constipation. COMPARISON STUDY: CT of the abdomen and pelvis April 01, 2025. FINDINGS: The bowel gas pattern is within normal limits. There is a large amount of stool throughout the colon and moderate amount of stool within the rectum. No calcifications are identified within the abdomen or pelvis. IMPRESSION: 1. Large amount of stool throughout the colon and moderate amount of stool within the rectum. 2. No evidence for a bowel obstruction. ACT 112: Negative or not required by law. Electronically signed by: Sung Evans M.D. 04/14/2025 10:32 AM
--- NOTE | 2025-04-14 15:08 | Podiatry Consultation ---
Date of Consultation April 14, 2025 Assessment & Plan (1) Onychomycosis: (2) Onychogryphosis: (3) Bilateral foot pain: Plan Bilateral feet evaluated. With patient's permission nails reduced x 10 with a 4-1/2 inch stainless steel nail nipper without issue. Patient reports immediate relief of symptoms with donning of shoes and weightbearing. - Discussed importance of regular footcare to reduce the risk of pain ulceration and infection. Patient plans to establish care with local physician office nurse for routine footcare as he is unable to manage toenails on his own. - Discussed importance of appropriate shoe gear for patient's activity level which primarily includes walking. He is encouraged to acquire a well made an appropriate sized pair of walking shoes or sneakers and uses primary footwear over his current leather dress shoes which are relatively nonforgiving. This conversation will be continued as an outpatient. Thank you for consulting podiatry to aid in the care of this patient. Podiatry will sign off at this point please reconsult as needed. History of Present Illness Reason for Consultation: Elongated toenails causing difficulty with ambulation little ability shoe and sized the painful Attending Physician: Dee Song MD History of Present Illness Patient seen resting comfortably in hospital bed following lunch in the common area today. Reports pain to the toes bilaterally due to elongated toenails. Patient is unable to manage his own toenails due to increased thickness and elongation with baseline difficulty accessing the toes due to obesity. Reports bilateral plantar foot pain in the location of hyperkeratotic tissue buildup which he believes is likely due to current footwear which includes stiff leather dress shoes. He is interested in establishing care with local podiatry and we discussed recommendations. Denies discomfort with reduction of toenails. Reports immediate relief of discomfort following reduction. Allergies Allergy/AdvReac Type Severity Reaction Status Date / Time dimenhydrinate Allergy Severe VESTIBULAR Verified 12/06/24 17:15 SX betahistine Allergy Intermediate Rash Verified 12/06/24 17:15 nabumetone Allergy Intermediate RASH Verified 12/06/24 17:15 sertraline [From Zoloft] AdvReac Severe LIVER Verified 12/06/24 17:15 ENZYMES ELEVATED monosodium glutamate AdvReac Headache Verified 04/06/25 09:29 Home Medications Medication Instructions Recorded Confirmed Type albuterol sulfate 90 mcg/actuation 2 puff inhalation Q4H PRN Wheezing 12/06/24 04/06/25 History aerosol inhaler (Ventolin HFA) aripiprazole 15 mg tablet 15 mg PO QAM 12/06/24 04/06/25 History cholecalciferol (vitamin D3) 25 25 mcg PO DAILY 12/06/24 04/06/25 History mcg (1,000 unit) capsule (Vitamin D3) clozapine 100 mg tablet 100 mg PO HS 12/06/24 04/06/25 History clozapine 200 mg tablet 400 mg PO BID 12/06/24 04/06/25 History cyclobenzaprine 10 mg tablet 10 mg PO BID PRN MUSCLE SPASMS 12/06/24 04/06/25 History famotidine 20 mg tablet 20 mg PO BID 12/06/24 04/06/25 History fluticasone fur. 100 mcg-umeclid 1 inh inhalation DAILY 12/06/24 04/06/25 History 62.5 mcg-vilant 25 mcg inhalat.powder (Trelegy Ellipta) fluticasone propionate 50 2 spray intranasal QAM 12/06/24 04/06/25 History mcg/actuation nasal spray,suspension pantoprazole 20 mg tablet,delayed 20 mg PO QAM 12/06/24 04/06/25 History release duloxetine 60 mg capsule,delayed 60 mg PO DAILY 04/02/25 04/06/25 History release clonazepam 1 mg tablet 1 mg PO HS 04/06/25 04/06/25 History duloxetine 30 mg capsule,delayed 30 mg PO DAILY 04/06/25 04/06/25 History release escitalopram oxalate 20 mg tablet 20 mg PO DAILY 04/06/25 04/06/25 History lithium carbonate 600 mg capsule 600 mg PO BID 04/06/25 04/06/25 History prazosin 5 mg capsule See Rx Instructions .Route .COMPLEX 04/06/25 04/06/25 History Patient History Medical History Neurofibromatosis, type I (von Recklinghausen's disease) Anxiety Meniere's disease Vertigo Surgical History History of neurologic surgery Family History Other No pertinent family history in first degree relatives Social History Smoking Status: Current some day smoker Tobacco Type: Pipe and Cigars Second Hand Exposure: No; Do You Dip or Chew Tobacco: No; Hx Alcohol Use: No (former) Hx Substance Use: No Preferred Language: Hungarian Communication Ability: Effective Communication Ability Comment: Some processing delay Traffic Lieutenant Required: No Beliefs That Will Affect Care: Congregation marital status: Single Current Living Situation: Family Current Living Situation Comment: lives w mother current occupational status: unemployed Feels Safe at Home: Yes Gender Identity: Male Assistive Devices: Hearing Aid - Bilateral Assistive Devices Comment: R hearing aid only L with audiology Review of Systems Review of Systems: Denies nausea, vomiting, fever, chills, chest pain. Reports inability to manage nails for the past several years. Reports pain in the bilateral toes and plantar feet. Physical Exam Physical Exam: Focused lower extremity exam: Range of motion of the bilateral foot and ankle is within normal limits. Muscle strength tested at 5 out of 5 bilateral to all muscle groups lower extremity. Patient has hyperkeratotic buildup subfirst 2nd and 3rd metatarsal head bilaterally without blood tingeing or signs of skin breakdown or local soft tissue infection. Significant elongation and incurvation, increased thickness and nail dystrophy to nails x 10. There is pain with palpation of several of the nails due to increased torque at the nailbed. Left hallux nail specifically causing pain with contact on the second digit. No open wounds or signs of local soft tissue infection. Pedal pulses are palpable bilateral. Results & Data Vital Signs (Past 12 Hours) Vital Signs Temp Pulse Resp BP 04/14/25 06:30 78 138/88 04/14/25 06:29 36.4 C L 77 16 146/90 H PG Care Time/CCT Total # of Minutes Spent Total Time Spent with Patient: Total time spent is greater than 50% in coordination of care (as documented) at patient's floor/unit and/or counseling patient: Coding Level of Care Code 84028 INT INP/OBS CARE 1/40MIN Diagnoses Onychomycosis B35.1 Onychogryphosis L60.2 Bilateral foot pain M79.671; M79.672 Comment Unable to locate nail debridement code 17591
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
[2025-04-19 06:31] VITALS: O2SAT 99
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
[2025-04-21 06:30] VITALS: BP 119/79; PULSE 74; RESP 16; TEMP 97.3
--- NOTE | 2025-04-21 09:02 | Discharge Summary ---
Date of Service April 21, 2025 History of Present Illness Xiang presents for psychiatric admission with ongoing auditory and visual hallucinations, suicidal thoughts and insomnia in the context of schizoaffective disorder with recent nausea and vomiting preventing him from consistently taking his prescribed psychiatric medications. Additional history per my consult note from 04/05/2025: "He reports resolution of nausea and vomiting but ongoing difficulty sleeping. Was awake since 2 am. This happens to him often and in the past Klonopin has helped. Reports history of CPAP use for DELFINA but not in many years, states his symptoms improved after he lost weight so no longer uses it. He has ongoing hallucinations which tell him to harm himself but he doesn't act on them due to wanting to be alive. Does report SI due to hallucinations and poor sleep but denies plan nor intent. He feels safe in the hospital. Reports a lot of past trauma which he thinks contributes to his poor sleep. Denies side effects from clozapine titration. Sees Dr. Domingo via [facility] for outpt psych but transitioning soon to [facility] psych clinic. Sees rod aHnsen twice weekly at Psych clinic. Enjoys his volunteer work with [employer]. One prior suicide attempt at age 18. Last inpt hospitalization about 7 years ago at the [facility]." Today he reports sleeping better last night which he is pleased about however continues to have suicidal thoughts and hallucinations. He reports auditory ni llucinations occurring 3 times today that lasted approximately 20 minutes each with the voices telling him to kill himself. He also reported approximately 7 visual hallucinations today seeing people and animals that are not there. He feels able to reality test these and to avoid acting on the auditory hallucinations. With that said states that his auditory hallucinations are "still pretty bad" and endorses ongoing suicidal thoughts though denies plan or intent noting "there is nothing here for a plan". He describes a long history of trauma symptoms including flashbacks and nightmares and feels these are worse than the hallucinations. States that his flashbacks primarily occur at night despite being on very high dose prazosin. He also experiences tactile hallucinations that make him feel as though he is being raped again which can be triggered by showering due to past trauma history. He reports that even at high doses prazosin has been largely ineffective for this. Xiang describes recently experiencing a manic episode lasting 3 to 4 days during which he made impulsive online purchases and agreed to volunteer commitments he could not for fill. He describes the initial feeling of javan as positive but states that by the third day it becomes "horrible" typically followed by a depressive crash. He feels he is currently in a depressive state. Current stressors include medication challenges in the context of recent episodes of nausea and vomiting over the last 3 months and his concerns about some of his medications as he reports his neurologist advises he continues to taper off medications due to "my dementia progression". He states that 3 of the medications the neurologist wanted him to be off of already been given discontinued with Klonopin being the remaining medication but he still finds this very helpful for sleep. He describes chronic back pain for which he receives injections which has been worsening recently. Reports he had been constipated but had a bowel movement today. He denies any current substance use but reports a history of alcohol use many years ago at the onset of his psychosis for self-medication. He is currently prescribed psychiatric medications of: -clozapine 400mg qAM and 500mg HS -abilify 15mg daily -prazosin 6mg qAM, 7mg midday, 7 mg HS -duloxetine 60mg daily -[place]aca 600mg BID -Klonopin 1-2mg HS prn -Lexapro 20mg daily Psychiatric ROS notable for history of javan, psychosis, PTSD. Physical Exam Vital Signs (Past 24 Hours) Last Vital Signs Temp 36.3 C L 04/21/25 06:28 Pulse 74 04/21/25 06:29 Resp 16 04/21/25 06:28 BP 119/79 04/21/25 06:29 Pulse Ox 99 04/19/25 06:30 O2 Del Method Room Air 04/19/25 06:30 Principal Diagnosis Schizoaffective Disorder, depressive episode Psychiatric Data See daily stay summary. In short, patient was engaged with the social/therapeutic milieu of the unit, safety was maintained and the patient was cooperative with care. Medication changes included re-titration of psychiatric medications with changes to dosing schedule of clozapine (150mg @0800 & 150mg @1200 & 500mg @1999), increased duloxetine to 90mg daily, discontinuation of escitalopram, discontinuation of prazosin, initiation of doxazosin 8mg HS, consolidation of Arivaca carbonate to 1,200mg HS, and clonazepam 1mg HS prn for panic attacks and they tolerated this well. Baseline labs of fasting glucose, fasting lipid profile, and weight were preformed (see labwork results below). Recommend repeat weight in one month. Recommend repeat fasting glucose, HbA1c and fasting lipid profile every 12 weeks and then annually. If symptoms arise recommend checking BP, EKG, prolactin level as clinically indicated or relevant. Baseline labs of thyroid function, kidney function, weight, electrolytes, CBC, and UA were preformed and WNL. Arivaca level at discharge was 0.5. Recommend repeat lithium level, thyroid function and kidney function labwork at 6 months and then annually or anytime symptoms arise. A support session was held and safety plan was completed prior to discharge. They participated in safety planning and in discussions about ways to seek support and recognizing warning signs and utilizing coping skills. Reviewed ways to have their safety plan and contacts easily available should thoughts of SI re-emerge in the future. Reviewed importance of seeking emergency care should SI intensify, worsen or should they feel unsafe in the future which they agree to do. On the day of discharge they stated their mood was "doing good" and remained future-oriented including seieng his dogs, celebrating his birthday with his mom at a local restaurant, starting to go to the local [employer], working with his outpatient CM on lessening his hoarding behaviors, volunteering at the local [facility] and engaging in aftercare appointments for psychiatry, therapy, CM, peer support and eventual IOP. Day of Discharge Assessment Today the patient voices readiness for discharge. They note improvement in mood and anxiety. They deny thoughts of harm to self or others. Thoughts are organized and they are clinically improved from admission. There is no evidence of psychosis (he continues to have chronic intermittent hallucinations but denies any command hallucinations and feels this is back to his baseline level of hallucinations which he feels capable of coping with). He continues to report significant relief from the improvement in his PTSD symptoms and lessening of night terrors and panic attacks overnight. They improved in the hospital with support and medication adjustments. They agree to take medications as prescribed and keep follow-up appointments. At the time of the discharge they are deemed to be stable and appropriate for outpatient level of care. They are not deemed to be at imminent risk of harm to self or others. They are aware of emergency and crisis services. Knows to call 911 or go to nearest emergency care center if in a crisis which cannot be handled as an outpatient. Suicide risk assessment: Acute risk is low given improvement in mood and denial of SI, lack of access to lethal means, plan to avoid substance use, improvement in sleep, hopefulness and improvement in psychosis. Chronic risk is moderate to high given some non- modifiable risk factors: psychiatric co-morbid diagnoses, prior attempt, chronic illness, prior psychiatric hospitalizations, mood disorder, schizophrenia, childhood trauma, but also with protective factors including volunteers, good social support, sense of responsibility to family and social supports, outpatient care in place, positive coping skills, positive problem solving, willingness to engage with treatment and self-observation. Counseled on ways to reduce acute and chronic risk including engaging with outpatient providers, using safety plan if needed, utilizing supports, taking medication, and using coping skills. Modifiable risk factors of SI, PTSD symptoms, psychosis and depression were addressed during hospitalization through development of new coping skills, support meeting, safety planning, and medication adjustments. Discharge physical exam: See admission H&P, MSE per above and day of discharge summary. Overall, I spent a total of 35 minutes on this case including meeting with the patient, reviewing the chart, nursing report, multidisciplinary team meeting, discharge orders, anticipatory planning, safety planning, risk assessment and documentation. Transition of Care Transition Of Care Record: was reviewed with the patient Advance Directives Advance Directives Information Provided: Yes Advance Directives: No Mental Health Advance Directive: No Advance Directives on File: No Living Will: No Power of Helpdesk Specialist: No Advance Directives Reason:: Declines as Mental Health Visit. Suicide Risk Level Suicide Risk Level Comments: see assessment above Risk Factors Assessment Male: Yes : Yes Do You Have Access To A Gun?: No Health Problems: Yes Mental Health Diagnoses: Yes Substance Use Disorders: No Previous Attempt: Yes Previous Psychiatric Hospitalization: Yes Hopelessness: No Protective Factors Assessment Employed: No (but volunteers) Stable Relationships: Yes Supportive Family: Yes Good Rapport with Provider: Yes Antipsychotic Medications Additional antipsychotic is being used for augmentation of Clozapine. Discharge Data Consultations 04/13/25 13:09 Consult Podiatry Routine Lab Results 04/07/25 04/16/25 08:00 20:28 Estimat Average Glucose 85 Hemoglobin A1c 4.6 Triglycerides 107 Cholesterol 173 LDL Cholesterol, Calc 115 VLDL Cholesterol, Calc 21 HDL Cholesterol 37 Cholesterol/HDL Ratio 4.7 25-OH Vitamin D Total 26.9 L Clozapine 88 Norclozapine 83 Arivaca 0.4 L 0.5 L Hospital Course (1) Schizoaffective disorder: (2) Depression with suicidal ideation: (3) Chronic post-traumatic stress disorder (PTSD): (4) Neurofibromatosis, type I (von Recklinghausen's disease): Plan 04/21/2025: -He feels safe and ready for discharge 04/20/2025: -Increase clozapine to 500mg HS and continue 150mg qAM and 150mg qnoon 04/19/2025: -Continue current medications and tx plan 04/18/2025: -Increase clozapine to 400mg QHS and continue 150mg qAM and qnoon 04/17/2025: Continue Clozapine 150 mg PO QAM, 150 mg PO @NOON and 300 mg PO QHS (continue to monitor for improvements in daytime sedation) (04/07/25 Clozapine level of 88 and Norclozapine level of 83) Continue Abilify 15 mg PO QAM Continue Arivaca 1200 mg PO QHS (04/07/25 Arivaca level subtherapeutic at 0.4) Continue Duloxetine 90 mg PO QAM (monitor blood pressure) Continue Doxazosin [Cardura] 8 mg PO QHS [nightmares] Continue Clonidine 1 patch TD Q7D Continue PRN Abilify 5 mg PO QD Continue PRN Vistaril 50 mg PO HSZ PRN and 25 mg PO Q4H 04/16/2025: Change to Clozapine 150 mg PO QAM, 150 mg PO @NOON and 300 mg PO QHS (04/07/25 Clozapine level of 88 and Norclozapine level of 83) Continue Abilify 15 mg PO QAM Continue Arivaca 1200 mg PO QHS (04/07/25 Arivaca level subtherapeutic at 0.4) Continue Duloxetine 90 mg PO QAM (monitor blood pressure) Continue Doxazosin [Cardura] 8 mg PO QHS [nightmares] Continue Clonidine 1 patch TD Q7D Continue PRN Abilify 5 mg PO QD Continue PRN Vistaril 50 mg PO HSZ PRN and 25 mg PO Q4H Continue Ipratropoium [place] (0.06%) Nasal [place] Q12H [for sialorrhea] Continue medications for constipation management (stable): Miralax Powder 17g PO QD Senokot 17.2mg PO QAM Colace 100mg PO BID PRN Milk of Magnesia 30 ml PO QD 04/15/2025: Continue Clozapine 300 mg PO BID (04/07/25 Clozapine level of 88 and Norclozapine level of 83) Continue Abilify 15 mg PO QAM Continue Arivaca 1200 mg PO QHS (04/07/25 Arivaca level subtherapeutic at 0.4) Increase to Duloxetine 90 mg PO QAM (monitor blood pressure) Continue Doxazosin [Cardura] 8 mg PO QHS [nightmares] Continue Clonidine 1 patch TD Q7D Continue PRN Abilify 5 mg PO QD Continue PRN Vistaril 50 mg PO HSZ PRN and 25 mg PO Q4H Continue Ipratropoium [place] (0.06%) Nasal [place] Q12H [for sialorrhea] Continue medications for constipation management: (one bowel movement today) Miralax Powder 17g PO QD Senokot 17.2mg PO QAM Colace 100mg PO BID PRN Milk of Magnesia 30 ml PO QD 04/14/2025: Continue Clozapine 300 mg PO BID (04/07/25 Clozapine level of 88 and Norclozapine level of 83) Continue Abilify 15 mg PO QAM Continue Arivaca 1200 mg PO QHS (04/07/25 Arivaca level subtherapeutic at 0.4) Continue Duloxetine 60 mg PO QAM (no observable impact on BP) Increase to Doxazosin [Cardura] 8 mg PO QHS [nightmares] Continue Clonidine 1 patch TD Q7D Continue PRN Abilify 5 mg PO QD Continue PRN Vistaril 50 mg PO HSZ PRN and 25 mg PO Q4H Continue Ipratropoium [place] (0.06%) Nasal [place] Q12H [for sialorrhea] Continue medications for constipation management: (one bowel movement today) Miralax Powder 17g PO QD Senokot 17.2mg PO QAM Colace 100mg PO BID PRN Milk of Magnesia 30 ml PO QD 04/13/2025: Discontinue Glycopyrrolate 1 mg PO BID due to active constipation (May retry once regular bowel movements are restored) Start Ipratropoium [place] (0.06%) Nasal [place] Q12H [for sialorrhea] Continue medications for constipation management: Miralax Powder 17g PO QD Senokot 17.2mg PO QAM Colace 100mg PO BID PRN Milk of Magnesia 30 ml PO QD If still ineffective will consider lubiprostone 04/12/2025: -Increase clozapine to 300mg BID -Lactulose 20 g one time dose for constipation (same as previous dose used on medical floor with good tolerance and effect) -Handy Worker consult to explore ways to increase fiber and help with bowel movements given sedating effects of antipsychotic medications 04/11/2025: -Use Vaseline for foot dryness -Consult podiatry for overgrown toenails which seem to be contributing to foot pain -Add senna for constipation -Increase abilify to 15mg tomorrow (his prior to admission dose) 04/10/2025: -Increase glycopyrrolate 1mg BID -Increase duloxetine to 60mg daily tomorrow -recheck Li level on 04/14/2025 04/09/2025: -Increase Arivaca to 1200mg HS (prior to admission dose) -Start glycopyrrolate 1mg daily -Start clonidine 0.1mg TD weekly -Consider further duloxetine titration to help with trauma symptoms 04/08/2025: -Increase clozapine to 250mg BID 04/07/2025: -Increase clozapine to 200mg BID -Increase Arivaca to 900mg HS -Increase doxazosin 6mg HS -Continue Vit D supplementation as ordered 04/06/2025: The patient was admitted to the [facility] ([facility] mental health unit) on q15 min checks (behavioral with suicide precautions) for safety. The patient will participate in group, recreational, and milieu therapies and will be offered additional individual and family sessions as clinically appropriate. -Ongoing clozapine titration will increase to 150mg BID -Continue Arivaca 600mg HS -Continue abilify 10mg daily -Discontinue escitalopram (he hasn't been taking since coming to the hospital and is already on duloxetine) -Restart duloxetine 30mg daily -Discontinue prazosin -Start doxazosin 4mg HS -Fasting lipid panel, HbA1c, Vit D, clozapine level, Arivaca level tomorrow AM Mental Health & Subst Abuse Tx Psychiatrist Name of Psychiatrist: Genet Everett - Krystle Domingo Psychiatrist's Date Of Appointment With Psychiatric Provider: 05/12/25 Time of Appointment with Psychiatrist: 9AM Psychiatric Appointment Comment: Telehealth Therapist Name of Therapist: Tyrone Yesenia José [facility] Therapist's Date of Therapist Appointment: 04/22/25 Time of Therapist Appointment: 12:00PM Therapy Appointment Comment: psychotherapy with Leroy while Tyrone is out on leave Therapist Release of Information: Obtained, Reviewed and Signed Solid Tire Finisher Name of Solid Tire Finisher: Shayla Zhang Phone Number for Solid Tire Finisher: [phone] Case Management Appointment Comment: clinical admissions manager will contact you to schedule next appt post discharge Post Discharge Appointments Primary Care Physician Name Of Family Doctor/PCP: Dr. Guardado Primary Care Medical Office Manager Name of Medical Office Manager: Desmond Murillo Medical Office Manager Appointment Comment: Your accounting specialist will contact you to schedule next appt post discharge Neurologist Name of Neurologist: Dr Boyd Simpson - [facility] Neurologist's Neurology Appointment Comment: follow up as scheduled Release of Information for Neurologist: Obtained Specialist Name of Specialist: [facility] Phone Number for Specialist: [phone] Other #1: Name of Aftercare Appointment: [facility] Phone Number of Aftercare Appointment: [phone] Aftercare Appointment Comment: On waitlist, patient will be contacted directly when next IOP group starts #2: Name of Aftercare Appointment: REHANA scheduled to transport you to therapy appt on 04/22/25 Phone Number of Aftercare Appointment: Date of Aftercare Appointment: 04/22/25 Time of Aftercare Appointment: Estimated roll picker from your home will be 11:15-11:28am. Aftercare Appointment Comment: Please call Rehana for updates on the day of the appointment Contact Information Discharge Discharge [address]: [address] [place] [id number] Discharge Plan Discharge Items Patient Disposition: Home - Self-Care Reason For Visit: SCHIZOPHRENIA Discharge Diagnosis: Schizoaffective Disorder, depressive episode Activity: Resume your previous activity Non-emergency contact: Primary Care Provider, Psychiatrist, Therapist, Electrical Cad Technician and Pain Management Call non-emergency contact if: you have any medication questions and your symptoms worsen Follow-up/Referrals: Atul Guardado MD [Primary Care Provider] - Diet: Regular Addtl Attending Provider Instructions: SPECIAL CARE INSTRUCTIONS: 1. Follow through with your scheduled aftercare appointments. If unable to keep an appointment, please call to reschedule. 2. Take your medication only as prescribed. Medication should not be changed or stopped without the approval of your doctor. In the event of worsening symptoms or concerns about side effects, contact your doctor immediately. 3. Utilize new healthy coping skills, anger management skills, and stress management skills learned during your hospitalization. Journal feelings and process them with a support person. Identify stressors or situations that may result in relapse, deterioration or inappropriate behaviors and develop a plan to deal with those issues. 4. If your coping skills are ineffective and you are in crisis, contact your outpatient providers for direction. If unable to reach your providers, please call the [facility] CRISIS LINE AT , go to the [facility] walk-in center at [address], [place], or go to the closest Emergency Room. 5. Avoid alcohol and un-prescribed drugs. 6. You have been provided with the Mental Health Advance Directives Pamphlet for your review. 7. Your condition is stable for discharge to outpatient level of care, but recovery is an ongoing process. Ifthoughts to harm yourself or others return, follow the safety plan developed during your stay. Planning for a safe return home includes securing weapons. Our treatment team recommends weaponsbe removed from the home until your outpatient provider reassesses your progress. In rare cases where the items themselvescannot be removed, guns and ammunitionshould be secured separatelyand keys stored by a reliable personoutside of the home. If you were admitted on an involuntary commitment, the police or other legal authorities may be involved in this process. AFTERCARE APPOINTMENTS: * Please call your insurance company prior to your scheduled appointment to confirm your aftercare providers are covered. Take your insurance information to your appointments. WHO TO CALL AND WHEN: Medical Emergencies: For questions or emergencies related to your hospital stay, please contact the Inpatient Behavioral Health Unit at [phone]. A digital sales representative is on-call 12/03 for the Behavioral Health Unit for emergencies At any time you feel your situation is an emergency, you may also call 911 immediately. National Crisis Hotline: 98 Pending Studies at Discharge: No Stand-Alone Forms: My [facility] Medications and DC Order Prescriptions: New clonidine 0.1 mg/24 hr Patch Weekly 1 patch transdermal Q7D 30 Days Qty: 4 0RF sennosides [Senna Lax] 8.6 mg Tablet 17.2 mg PO QAM PRN (Reason: constipation) 30 Days Qty: 30 0RF polyethylene glycol 3350 [Miralax] 17 gram Powder In Packet 17 g PO DAILY 30 Days Qty: 30 0RF lidocaine 5 % Adhesive Patch,Medicated 1 patch transdermal QAM 30 Days Qty: 30 0RF docusate sodium 100 mg Capsule 100 mg PO BID 30 Days Qty: 60 0RF ipratropium bromide 42 mcg (0.06 %) [place],Non-Aerosol 2 spray intranasal Q12 PRN (Reason: drooling) 30 Days Qty: 15 0RF Rx Instructions: Place under tongue twice daily as needed for excessive salivation duloxetine 30 mg Capsule,Delayed Release(Dr/Ec) 90 mg PO QAM 30 Days Qty: 90 0RF doxazosin 8 mg tablet 8 mg PO HS 30 Days Qty: 30 0RF clozapine 100 mg tablet 150 mg PO UD 30 Days Qty: 90 0RF Rx Instructions: Take daily at 8am and daily at 12pm clozapine 200 mg tablet 500 mg PO HS 30 Days Qty: 75 0RF lithium carbonate 600 mg capsule 1,200 mg PO HS 30 Days Qty: 60 0RF Continued cyclobenzaprine 10 mg tablet 10 mg PO BID PRN (Reason: MUSCLE SPASMS) Rx Instructions: take 1 tablet two times a day as needed for muscle spasms pantoprazole 20 mg tablet,delayed release (DR/EC) 20 mg PO QAM Rx Instructions: take 1 tablet by mouth in morning famotidine 20 mg tablet 20 mg PO BID albuterol sulfate [Ventolin HFA] 90 mcg/actuation HFA aerosol inhaler 2 puff INHALATION Q4H PRN (Reason: Wheezing) fluticasone propionate 50 mcg/actuation spray,suspension 2 spray INTRANASAL QAM cholecalciferol (vitamin D3) [Vitamin D3] 25 mcg (1,000 unit) Capsule 25 mcg PO DAILY Trelegy Ellipta 100-62.5-25 mcg blister with device 1 inh INHALATION DAILY aripiprazole 15 mg tablet 15 mg PO QAM 30 Days Qty: 30 0RF Rx Instructions: one tablet in morning Changed clonazepam 1 mg tablet 1 mg PO HS PRN (Reason: panic attacks) 30 Days Qty: 30 0RF Discontinued clozapine 100 mg tablet 100 mg PO HS clozapine 200 mg tablet 400 mg PO BID duloxetine 60 mg capsule,delayed release(DR/EC) 60 mg PO DAILY duloxetine 30 mg capsule,delayed release(DR/EC) 30 mg PO DAILY lithium carbonate 600 mg capsule 600 mg PO BID prazosin 5 mg capsule See Rx Instructions .ROUTE .COMPLEX Rx Instructions: 7 mg orally ;6mg at noon, 7mg at 1600 and 7mg at HS escitalopram oxalate 20 mg tablet 20 mg PO DAILY Discharge Orders: Discharge Order (Routine); Ordered 04/21/25 Ordered By: Dee Song Admission Data Admit Date/Time: 04/05/25 20:04 Attending Provider: Dee Song Admit Provider: Dee Song Primary Care Provider: Atul Guardado Other Providers: Troy Duvall Other Interventions: Discharge Summary Assessment (RN) Last Done: 04/21/25 12:43 Coding Level of Care Code 51952 D/C day mgmt > 30 min Diagnoses Schizoaffective disorder F25.9 Depression with suicidal ideation F32.A; R45.851 Chronic post-traumatic stress disorder (PTSD) F43.12 Neurofibromatosis, type I (von Recklinghausen's disease) Q85.01
== END 2025-04-21 16:47 | disposition home or self-care (01) | DRG 885 ==
LOC: 3S 20:04